=== PATIENT | female | born 1930 | race Caucasian/White ===

== ENCOUNTER 2016-12-09 10:07 | Inpatient (IN) | payer MEDICARE, BC ==
[~2016-12-09] VITALS: Ht 160 cm; Wt 65.5 kg
--- NOTE | ~2016-12-09 | XA203 ---
[facility] A Service of [facility] & [facility] RADIOLOGY TEXT RESULTS PATIENT: DEMARCO WALKER LOCATION: [facility] 323-01 : [birth year] UNIT #: [id number] AGE: [address]: Brandon Cabral MD SEX: F ORDER DR: [id number] [facility] [address] [facility]. [place], [place] [address] [id number] MR#: [id number] #: [id number] NAME: DEMARCO WALKER. : 1930 SEX: F STUDY DATE/TIME: 12/13/2016 10:52 UNIT: [address] ROOM: [facility] STUDY DESCRIPTION: XA Thoracentesis Attending Physician: Brandon Cabral M.D. Ordering Physician: Brandon Cabral M.D. Primary Care Physician: Keven Smith M.D. MEDICAL IMAGING REPORT This report is preliminary unless electronic signature is present EXAM Right-sided thoracentesis INDICATION Large right pleural effusion PROCEDURE The risks, benefits and alternatives to the procedure were explained to the patient and signed, informed consent was obtained. She was seated in the upright position. Preliminary ultrasound of the right hemithorax was performed which demonstrated a large right pleural effusion. This image was permanently saved. Overlying skin was marked. Patient was prepped and draped in the usual sterile fashion. Time-out was performed as per protocol. Skin and subcutaneous tissues were anesthetized with buffered lidocaine. Catheter was hooked to suction tubing. There was evacuation of 1.3 L of serous material. Catheter was then removed and manual pressure was applied until hemostasis was obtained. IMPRESSION Technically successful ultrasound guided right thoracentesis with evacuation of 1.3 L of serous material. Ultrasound was used during the procedure and permanent images were saved. Dictated by... Patsy Smith M.D. THIS IS AN ELECTRONICALLY VERIFIED REPORT Patsy Smith M.D. at 12/15/2016 4:17 PM HARDIK/radha TD: 12/15/2016 13:23 JOB #: [id number] [facility] A Service of [facility] & [facility] RADIOLOGY TEXT RESULTS PATIENT: DEMARCO WALKER LOCATION: [facility] 323-01 : [birth year] UNIT #: [id number] AGE: [address]: Brandon Cabral MD SEX: F ORDER DR: MEDICAL IMAGING REPORT Page 1 of 1 COPY
--- NOTE | ~2016-12-09 | CO ---
Unit #: [id number] #: [id number] Patient: DEMARCO WALKER [id number] [address] [address] [id number] I MR#: [id number] NAME: DEMARCO WALKER. ROOM: 323 Age: 86 Sex: F Admission Date: 12/09/2016 : 1930 Attending Physician: Brandon Cabral M.D. Primary Care Physician: Keven Smith M.D. Consultation Date: 12/10/2016 CONSULTATION REPORT PRIMARY CARE PHYSICIAN Keven Smith M.D. REASON FOR CONSULTATION 1. Upper abdominal pain. 2. Anemia. 3. Hemoccult-positive stools and occult gastrointestinal blood loss. HISTORY OF PRESENT ILLNESS Ms. Walker is a very frail 86-year-old white female. The patient has presented with history of right lower chest and upper abdominal pain in the right side for the past several weeks. She is on long-term anticoagulation, and has significant severe CHF. The patient upon admission was found to be anemic and also had Hemoccult-positive stools. She denies any history of overt GI bleed in the form of hematemesis, melena, or hematochezia. PAST MEDICAL HISTORY Significant for history of atrial fibrillation, on long-term anticoagulation, as well as history of pneumonia, hyperglycemia, Clostridium difficile colitis, hypertension, hyperlipidemia, diabetes, anxiety, rheumatoid arthritis, history of coronary artery disease status post angioplasties, history of pulmonary hypertension, peripheral arterial disease with lower extremity stent placements. PAST SURGICAL HISTORY Included placement of stents in the lower extremity arteries, history of dilatation and curettage, sinus surgery, back surgery, cholecystectomy, left knee surgery, appendectomy, and hysterectomy. MEDICATIONS At home included; Coumadin, Coreg, hydralazine, prednisone, Zoloft, Prilosec, potassium, glimepiride, Zestril. ALLERGIES She is allergic to oxycodone and sulfonamides. FAMILY HISTORY Noncontributory. SOCIAL HISTORY Lives at home with her . She says she is able to do most activities of daily living, but is quite frail. She does not smoke or drink alcohol. Unit #: [id number] #: [id number] Patient: DEMARCO WALKER REVIEW OF SYSTEMS Detailed review of organ systems reveals poor mobility and poor effort tolerance. There is no history of overt GI bleed in the form of hematemesis, melena, or hematochezia. No history of fever, chills, or rigors. No history of headache, seizures, chest pain, or syncope. No history of cough, expectoration, or hemoptysis. No history of dysuria, hematuria, or pyuria. No history of focal seizures or extremity weakness. PHYSICAL EXAMINATION GENERAL: She is awake, but somewhat lethargic. She is arousable. VITAL SIGNS: Stable with a temperature of 98.1, pulse is 49 per minute and regular, respiratory rate is 18, and blood pressure is 128/61. She weighs 156 pounds, which is close to her baseline weight. HEENT: She has mild pallor. No icterus, lymphadenopathy, or peripheral edema. She does have grade 1 pitting peripheral edema. CARDIOVASCULAR: Normal heart sounds. LUNGS: Auscultation of the lungs reveal bilateral diminished symmetric air entry. ABDOMEN: Soft, obese, nontender. Liver and spleen are not palpable. Bowel sounds normal. DIAGNOSTIC STUDIES LABORATORY RESULTS: Shows a BUN and creatinine of 32 and 1.4, blood glucose of 148. Her sodium and potassium are normal, and albumin is 3.0. INR was 1.1. Her hemoglobin is 10.1, baseline hemoglobin is [place] 12[place] [address] with left shift, and platelet count is 185. CLINICAL IMPRESSION Although, the patient has Hemoccult positive stools and anemia, she is quite frail, and any kind of invasive investigation or evaluation would be counterproductive. A diagnostic endoscopy is however warranted to be scheduled tomorrow to look for any evidence of GI source of blood loss. The pros and cons of procedure will be done later today. The pros and cons of procedure, potential risks, and complications were discussed with the patient, and she was reassured. Thank you for asking me to see this pleasant woman. I appreciate the consult. Dictated byAlejandra Kuo/rachel TD: 12/12/2016 20:24 JOB #: [id number] Unit #: [id number] #: [id number] Patient: DEMARCO WALKER CONSULTATION REPORT Page 1 of 1 X Junior Gruber MD CONSULTATION REPORT
--- NOTE | ~2016-12-09 | HP ---
Unit #: [id number] #: [id number] Patient: DEMARCO WALKER [id number] [address] [address] [id number] MR#: [id number] NAME: DEMARCO WALKER ROOM: Age: 86 Sex: F Admission Date: 12/09/2016 : 1930 Attending Physician: German Corrales M.D. Primary Care Physician: Keven Smith M.D. HISTORY AND PHYSICAL CHIEF COMPLAINT Abdominal pain. HISTORY OF PRESENT ILLNESS The patient is an 86-year-old female with past medical history of atrial fibrillation, sick sinus syndrome, chronic anticoagulation, hypertension, hyperlipidemia, diabetes, anxiety, rheumatoid arthritis, pulmonary hypertension, coronary artery disease, who presented to the emergency department for evaluation of the above. The patient states that she has not been feeling well for two to three days. She reports crampy abdominal pain that has been intermittent in nature. There are no exacerbating or alleviating factors. She states that she has had vomiting and diarrhea in association with the pain. She reports three to four black stools within the past 24 hours. She has had chills and undocumented fever. She denies any chest pain. No cough. No urinary symptoms. In the emergency department initial pulse and blood pressure were 82 and 121/71 respectively. Temperature is 98.6. Chest x-ray shows vascular congestion with possible infiltrate in the bases. She was given Rocephin and azithromycin in the emergency department as well as a 1 L normal saline bolus and 4 mg of Zofran. She is being admitted to [facility] for evaluation and further treatment. PAST MEDICAL HISTORY 1. Admission to [facility] April 09-2015 for hypoglycemia and pneumonia. 2. History of C. diff. 3. Atrial fibrillation, on chronic anticoagulation with Pradaxa. 4. Sick sinus syndrome. 5. Hypertension. 6. Hyperlipidemia. 7. Diabetes. 8. Anxiety. 9. Rheumatoid arthritis. 10. Coronary artery disease. The patient had a cardiac catheterization May 11, 2012 that showed 90% stenosis at the ostium of the first diagonal branch of the LAD, 40% to 50% stenosis in the proximal LAD, 50% stenosis at the ostium of the right coronary artery. The plan was medical therapy per the operative note. 11. Pulmonary hypertension. The patient had an echocardiogram October 13, 2013 that showed an ejection fraction of 45% to 50%. Right ventricular systolic pressure was elevated at greater than 60 mmHg. 12. Peripheral arterial disease, status post lower extremity stent Unit #: [id number] #: [id number] Patient: DEMARCO WALKER. PAST SURGICAL HISTORY 1. Cardiac catheterization May 11, 2012 with results as noted above. 2. Appendectomy. 3. Hysterectomy. 4. Left knee surgery. 5. Back surgery. 6. Cholecystectomy. 7. Cataract surgery. 8. Lower extremity stents. 9. D/C. 10. Sinus surgery. SOCIAL HISTORY The patient lives with her . There is no tobacco or alcohol use. Her code status is a Do Not Resuscitate. FAMILY HISTORY Noncontributory secondary to age. ALLERGIES Oxycodone, sulfa. HOME MEDICATIONS 1. Coreg 3.125 mg b.i.d. 2. Hydralazine 25 mg b.i.d. 3. Prednisone 5 mg daily. 4. Zoloft 50 mg daily. 5. Prilosec 20 mg daily. 6. Potassium 10 mEq b.i.d. 7. Glimepiride 2 mg q.h.s. 8. Zestril 40 mg daily. REVIEW OF SYSTEMS A complete review of systems is negative except as indicated in the HPI. The patient has been going to the wound care center at [facility] for the past year regarding leg wounds. DIAGNOSTIC STUDIES CARDIOVASCULAR: EKG shows atrial fibrillation with a rate of 73 beats per minute. IMAGING: Chest x-ray shows possible bibasilar infiltrates with small bilateral pleural effusions. CT of the abdomen and pelvis shows no acute intraabdominal pathology. LABORATORY: INR is 1.2. Troponin is less than 0.05. Comprehensive metabolic panel notable for a glucose of 130, BUN and creatinine 31 and 1.4 respectively, AST and ALT are 55 and 42 respectively, alkaline phosphatase is 93, albumin is 3.4. Complete blood count notable for white blood cell count of 15.9, hemoglobin and hematocrit 10.7 and 34.3 respectively, MCV was 70.4, RDW 21.2. PHYSICAL EXAMINATION VITAL SIGNS: Temperature is 98.6. Pulse 87. Respirations 16. Blood pressure 121/71. Oxygen saturation 93% on room air. Unit #: [id number] #: [id number] Patient: DEMARCO WALKER GENERAL: The patient is a female who is awake and alert, in no acute distress. HEENT: The head is atraumatic. Mucous membranes are moist. NECK: Neck is supple. Trachea is midline. CARDIOVASCULAR: Irregular. LUNGS: Lungs are relatively clear to auscultation bilaterally, with no increased work of breathing. ABDOMEN: Abdomen is soft, nontender, with bowel sounds present in all four quadrants. ANO-RECTAL: Rectal exam was heme positive per my discussion with the ER staff. EXTREMITIES: Nontender, with no pedal edema. The legs are wrapped with TEVIN bandages bilaterally. NEUROLOGIC: The patient is awake and alert. She is oriented x3. She follows commands. PSYCHIATRIC: Mood and affect are normal. The patient is cooperative. SKIN: Skin of examined areas is warm and dry. ASSESSMENT The patient is an 86-year-old female with: 1. Pneumonia, community acquired. The patient received Rocephin and azithromycin in the emergency department. 2. Abdominal pain with a negative CT of the abdomen and pelvis. 3. Nausea, vomiting and diarrhea. The patient has a history of Clostridium difficile. 4. Gastrointestinal bleed. 5. Microcytic anemia. The patient's hemoglobin was 12.6 on April 15, 2016. It is 10.7 today. 6. Acute kidney injury. The patient's creatinine was 0.8 on April 17, 2016. It is 1.4 today. I suspect this patient is somewhat volume depleted as she has not been eating and had vomiting and diarrhea. Additionally, she is on Zestril which could be contributing. 7. Transaminitis. 8. Atrial fibrillation, on chronic anticoagulation with Pradaxa although that is not listed on her med rec. The patient and her state that she is on Pradaxa. 9. History of sick sinus syndrome. 10. Hypertension. 11. Hyperlipidemia. 12. Diabetes. 13. Anxiety. 14. Rheumatoid arthritis. 15. Pulmonary hypertension with right ventricular systolic pressure as noted above. 16. Coronary artery disease. 17. History of leg wounds, followed by the wound care center at [facility]. PLAN 1. Admit to intermediate level. 2. Normal saline at 75 mL an hour. 3. Clear liquid diet for possible endoscopy. 4. Blood cultures x2. 5. Sputum culture and sensitivity. 6. Procalcitonin level. 7. Rocephin and azithromycin IV for community-acquired pneumonia pending further workup. Unit #: [id number] #: [id number] Patient: DEMARCO WALKER 8. DuoNebs q.4 h. p.r.n. 9. Mucinex 600 mg p.o. b.i.d. 10. Supplemental oxygen. 11. Iron studies, B12 and folate. 12. Protonix 80 mg IV x1 followed by Protonix drip at 8 mg per hour. 13. Hemoglobin and hematocrit q.6 h. Will plan to transfuse for hemoglobin less than eight due to history of coronary artery disease. 14. Consult Dr. Gruber regarding GI bleed. 15. Hold Pradaxa if patient is, in fact, taking Pradaxa. 16. Stool studies for ova and parasite, C. diff., culture and sensitivity. 17. Serial cardiac enzymes. 18. Hemoglobin A1C. 19. Low dose sliding scale insulin with Accu-Cheks. 20. Check urinalysis. 21. Repeat labs in the morning. 22. Wound care consult regarding leg wounds. 23. Regarding code status, the patient is a Do Not Resuscitate. Dictated by Alejandra Cool/sonia TD: 12/09/2016 15:14 JOB #: [id number] HISTORY AND PHYSICAL Page 1 of 1 X Nury Hickey MD X HISTORY AND PHYSICAL
--- NOTE | ~2016-12-09 | CR72 ---
[facility] A Service of [facility] RADIOLOGY TEXT RESULTS PATIENT: DEMARCO WALKER LOCATION: [place] [address] : [birth year] UNIT #: [id number] AGE: [address]: Nury Hickey MD SEX: F ORDER DR: [id number] [facility] [address] [facility] [place], [place] [address] [id number] E MR#: [id number] Acc #: [id number] NAME: DEMARCO WALKER : 1930 SEX: F STUDY DATE/TIME: 12/09/2016 11:08 UNIT: [facility] ROOM: STUDY DESCRIPTION: CR Chest Single View Portable Attending Physician: German Corrales M.D. Ordering Physician: German Corrales M.D. Primary Care Physician: Keven Smith M.D. MEDICAL IMAGING REPORT This report is preliminary unless electronic signature is present EXAM Portable chest 12/09/2016 INDICATIONS Shortness of air for 3 days with nausea, vomiting, and diarrhea. COMPARISON AP portable chest compared with 04/13/2016. FINDINGS Heart is enlarged. There is vascular congestion with probable pulmonary edema. Pneumonia should be excluded in the lung bases. There are small bilateral pleural effusions. No pneumothorax. Dictated by... Juan David Armstrong Jr., M.D. THIS IS AN ELECTRONICALLY VERIFIED REPORT Juan David Armstrong Jr., M.D. at 12/09/2016 4:50 PM YANI/kim TD: 12/09/2016 13:21 JOB #: [id number] MEDICAL IMAGING REPORT Page 1 of 1 COPY
--- NOTE | ~2016-12-09 | EKG ---
PATIENT: DEMARCO WALKER UNIT #: [id number] Ventricular Rate: 73 BPM Atrial Rate: 77 BPM QRS Duration: 104 ms Q-T Interval: 404 ms QTC Calculation(Bezet): 445 ms Calculated R [place]: -64 degrees Calculated T [place]: 101 degrees Diagnosis Line: Atrial fibrillation with a competing junctional Diagnosis Line: pacemaker Diagnosis Line: Left axis deviation Diagnosis Line: Inferior infarct , age undetermined Diagnosis Line: poor r wave progression in anterior leads related Diagnosis Line: to left anterior fascicular block Diagnosis Line: Abnormal ECG Diagnosis Line: When compared with ECG of 09-APR-2016 17:49, Diagnosis Line: No significant change was found Diagnosis Line: Confirmed by ALIX HUTCHINSON, LENNY ([id number]) on 12/11/2016 Diagnosis Line: 8:17:30 AM INTERPRETING MD: ALIX HUTCHINSON
--- NOTE | ~2016-12-09 | CO ---
Unit #: [id number] #: [id number] Patient: DEMARCO WALKER [id number] [address] [address] [id number] I MR#: [id number] NAME: DEMARCO WALKER. ROOM: 323 Age: 86 Sex: F Admission Date: 12/09/2016 : 1930 Attending Physician: Brandon Cabral M.D. Primary Care Physician: Keven Smith M.D. Consultation Date: 12/11/2016 CONSULTATION REPORT REASON FOR CONSULT Evaluation of pleural effusion. HISTORY OF PRESENT ILLNESS This is a very pleasant 86-year-old female with a past medical history significant for atrial fibrillation, sick sinus syndrome, hypertension, hyperlipidemia, rheumatoid arthritis and pulmonary hypertension who presented to the emergency room with nausea and abdominal pain. Patient admitted to two to three episodes of vomiting and she had some loose stool. She stated that her vomitus was black material. She denied any fever but she had some chills. PAST MEDICAL HISTORY 1. Recurrent C. diff. 2. Atrial fibrillation. 3. Sick sinus syndrome. 4. Hypertension. 5. Hyperlipidemia. 6. Diabetes. 7. Anxiety. 8. Rheumatoid arthritis. 9. Coronary artery disease. 10. Pulmonary hypertension. 11. Peripheral vascular disease. PAST SURGICAL HISTORY 1. Multiple cardiac caths. 2. Appendectomy. 3. Hysterectomy. 4. Left knee surgery. 5. Back surgery. 6. Cholecystectomy. 7. Cataract surgery. 8. Lower extremity stent. 9. Sinus surgery. SOCIAL HISTORY The patient lives with her . No history of alcohol or drug abuse. Her code status is DON'T RESUSCITATE. FAMILY HISTORY Noncontributory to her age. Unit #: [id number] #: [id number] Patient: DEMARCO WALKER ALLERGIES Oxycodone, sulfa. HOME MEDICATIONS 1. Coreg. 2. Hydralazine. 3. Prednisone. 4. Zoloft. 5. Prilosec. 6. Potassium. 7. Glimepiride. 8. Zestril. REVIEW OF SYSTEMS Twelve point review of systems were obtained and were negative except for what was mentioned in the HPI. DIAGNOSTIC STUDIES LABORATORY: Creatinine 1.4, sodium 136, calcium 8.3, BNP 600, troponin 0.1, white blood count 10.0, hemoglobin 9.8, platelets 148. IMAGING: CT chest is consistent with bilateral pleural effusion. ASSESSMENT 1. Acute hypoxic respiratory failure. 2. Community-acquired pneumonia. 3. Bilateral pleural effusion. 4. Pulmonary hypertension. 5. Coronary artery disease. 6. Peripheral vascular disease. 7. Chronic kidney disease. 8. Chronic anemia. PLAN 1. Will try to wean patient's oxygen down to room air, which is her baseline, as tolerated. 2. Will continue current antibiotics and we will follow culture. 3. Will plan for thoracentesis within the next one to two days. 4. Bronchodilator and mucolytics. 5. Physical therapy. 6. Out of bed to chair and ambulation. 7. DVT prophylaxis. I would like to thank Dr. Cabral for allowing me to be part of this patient's care. Dictated by... Alejandra George TD: 12/12/2016 08:39 JOB #: [id number] Unit #: [id number] #: [id number] Patient: DEMARCO WALKER CONSULTATION REPORT Page 1 of 1 X AMY MEJÍA MD X CONSULTATION REPORT
--- NOTE | ~2016-12-09 | DS ---
Unit #: [id number] #: [id number] Patient: DEMARCO WALKER [id number] [address] [place], [place] [address] [id number] I MR#: [id number] NAME: DEMARCO WALKER. ROOM: 323 Age: 86 Sex: F Admission Date: 12/09/2016 : 1930 Discharge Date: 12/14/2016 Attending Physician: Brandon Cabral M.D. Primary Care Physician: Keven Smith M.D. DISCHARGE SUMMARY TENTATIVE REPORT (medication dosing issue faxed to Dr. Cabral for completion 12/14 ) REASON FOR ADMISSION Abdominal pain. HISTORY OF PRESENT ILLNESS/HOSPITAL COURSE The patient is a very pleasant 86-year-old female with an ongoing history of atrial fibrillation and sick sinus syndrome, on chronic anticoagulation, hypertension, hyperlipidemia, diabetes, rheumatoid arthritis, pulmonary hypertension, and coronary artery disease, as well as mild to moderate dementia and very hard of hearing, who presented secondary to abdominal pain. Chest x-ray initially performed in the emergency room showed vascular congestion and possible infiltrates. She was admitted secondary to above. Through her hospital course and secondary to patient's history of abdominal pain, we placed a consultation to Dr. Gruber of gastroenterology services. Ultimately, patient underwent upper GI endoscopy which did not show any acute findings. Dr. Gruber stated at that point in time that patient was stable from his standpoint. He did note there was a stricture in the distal esophagus which he dilated. However, there was no acute etiology for bleeding and/or aspiration. Otherwise, it remained stable. Patient's abdominal pain shortly thereafter resolved. While we were preparing patient for possible discharge, it was noted that she was significant fluid overloaded; therefore, we placed a consultation to Dr. Smalls and associates from Cardiology. Her medications were adjusted, and she was placed on IV diuresis. She did undergo a 2D echocardiogram which showed an ejection fraction of 45% to 50%, as well as right ventricular volume overload and elevated RV end-diastolic pressures. There was moderate to severe tricuspid regurgitation and moderate mitral regurgitation, as well as moderate aortic regurgitation which was noted. At this point in time, cardiology services has cleared patient. Through workup, patient also had undergone a CT chest which raised the possibility of infiltrate versus bilateral pleural effusions, right greater than left. This prompted consultation to Dr. Elliott and associates for evaluation. The patient ultimately underwent right-sided thoracentesis which was more transudative in nature consistent with fluid overload/heart failure exacerbation. Patient's blood cultures also came back positive for E. coli ESBL Unit #: [id number] #: [id number] Patient: DEMARCO WALKER bacteremia, as well as her urine culture was positive for ESBL. This subsequently prompted consultation to infectious disease services who recommended IV Merrem 500 mg IV q.6 until December 25, 2016. It is also noted that patient does have chronic bilateral lower extremity edema/wounds. This prompted a Wound Care consult, and they continued to follow patient through course while she was here. Final wound culture was consistent with pseudomonas. At this point in time, patient is now stable for discharge. Secondary to advanced age and associated comorbid conditions, as well as her being of advanced age and having his own chronic medical conditions, and need for patient to have IV antibiotics, the decision has been made for patient to be transitioned to a short-term rehab facility. FINAL DISCHARGE DIAGNOSES 1. Extended-spectrum beta-lactamase bacteremia. 2. Extended-spectrum beta-lactamase urinary tract infection. 3. Pseudomonas on chronic bilateral lower extremity wounds. 4. Right-sided pleural effusion, transudative, status post thoracentesis. 5. Acute on chronic systolic/diastolic heart failure. 6. Valvular heart disease. 7. Hard of hearing. 8. Dementia. 9. Cardiac arrhythmias and atrial fibrillation/sick sinus syndrome. 10. Chronic anticoagulation. 11. Volume overload, now improved. 12. Advanced age. 13. Chronic deconditioning. 14. Chronic immobility syndrome. 15. Hypertension. 16. Nonsustained ventricular tachycardia. 17. Anemia. DIAGNOSTIC STUDIES LABORATORY: Baseline laboratory studies at time of discharge include the following: Hemoglobin 9.4 and MCV 70. BMP shows a creatinine 0.9 and GFR 57. FINAL DISCHARGE MEDICATIONS 1. DuoNeb aerosol solution q.6 hours scheduled. 2. Prednisone 5 mg p.o. daily. 3. Tylenol 650 mg p.o. q.6 p.r.n. 4. Zoloft 50 mg p.o. daily. 5. Senokot-S 1 tablet p.o. b.i.d. 6. Lasix 20 mg p.o. b.i.d. 7. Lipitor 10 mg p.o. at bedtime. 8. Hydralazine 25 mg p.o. b.i.d. 9. Lisinopril 20 mg p.o. daily. 10. NovoLog low-dose insulin sliding scale with Accu-Cheks q.a.c. and at bedtime. 11. Aldactone 12.5 mg p.o. daily. 12. Protonix 40 mg p.o. q.a.m. 13. Klor-Con 10 mEq p.o. b.i.d. 14. Amaryl 2 mg p.o. "q.h.s. with breakfast (?)" 15. Merrem 500 mg IV q.6 until December 25, 2016. DISCHARGE CONDITION Unit #: [id number] #: [id number] Patient: DEMARCO WALKER Stable. DISCHARGE DISPOSITION Rehab for ongoing care. Dictated by... Alejandra Palmer/tremaine TD: 12/14/2016 15:34 JOB #: [id number] DISCHARGE SUMMARY Page 1 of 1 X Brandon Cabral MD X DISCHARGE SUMMARY
--- NOTE | ~2016-12-09 | CT4 ---
[facility] A Service of [facility] RADIOLOGY TEXT RESULTS PATIENT: DEMARCO WALKER LOCATION: C3A 323-01 : [birth year] UNIT #: [id number] AGE: [address]: Brandon Cabral MD SEX: F ORDER DR: [id number] [facility] [address] [facility]. [place], [place] [address] [id number] I MR#: [id number] Acc #: [id number] NAME: DEMARCO WALKER. : 1930 SEX: F STUDY DATE/TIME: 12/09/2016 13:05 UNIT: CEDOF ROOM: [id number] STUDY DESCRIPTION: CT Abd and Pelv Wo Cont Attending Physician: Nury Hickey M.D. Ordering Physician: Savanna Hudson Primary Care Physician: Keven Smith M.D. MEDICAL IMAGING REPORT This report is preliminary unless electronic signature is present EXAM CT abdomen and pelvis without contrast INDICATIONS Nausea vomiting diarrhea for the past 3 days with bloody stools. PROCEDURE Unenhanced CT of the abdomen and pelvis. This CT exam was performed with one or more of the following radiation dose reduction techniques: automatic control, adjustment of mA and/or kV according to patient size, and iterative reconstruction. COMPARISON 05/15/2015 FINDINGS ABDOMEN WITHOUT CONTRAST: Large bilateral pleural effusions stable on the right and increased on the left. Cardiomegaly. Liver enlarged measuring 20.2 cm. The spleen kidneys adrenal glands pancreas are unremarkable. Gallbladder is not clearly seen and may be surgically absent or contracted. Bowel loops are nondilated. Uncomplicated sigmoid diverticula. PELVIS WITHOUT CONTRAST: There is a small to moderate amount of fluid in the pelvis. No pelvic mass. No aggressive appearing bone lesion. IMPRESSION 1. Large bilateral pleural effusions stable on the right, increased on the left, since 05/15/2015. 2. Hepatomegaly. 3. No acute findings [facility] A Service of [facility] RADIOLOGY TEXT RESULTS PATIENT: DEMARCO WALKER LOCATION: [facility] 323-01 : [birth year] UNIT #: [id number] AGE: [address]: Brandon Cabral MD SEX: F ORDER DR: Dictated by... Juan Salinas M.D. THIS IS AN ELECTRONICALLY VERIFIED REPORT Juan Salinas M.D. at 12/13/2016 8:20 AM EERosaura/parker TD: 12/09/2016 15:24 JOB #: [id number] MEDICAL IMAGING REPORT Page 1 of 1 COPY
--- NOTE | ~2016-12-09 | XA166 ---
[facility] A Service of [facility] RADIOLOGY TEXT RESULTS PATIENT: DEMARCO WALKER LOCATION: [facility] 323- : [birth year] UNIT #: [id number] AGE: [address]: Brandon Cabral MD SEX: F ORDER DR: [id number] [facility] [address] [facility]. [place], [place] [address] [id number] I MR#: [id number] Acc #: [id number] NAME: DEMARCO WALKER. : 1930 SEX: F STUDY DATE/TIME: 12/13/2016 10:52 UNIT: C3A U ROOM: [facility] STUDY DESCRIPTION: XA PICC Line Placement WO Port Attending Physician: Brandon Cabral M.D. Ordering Physician: Shine Mullen M.D. Primary Care Physician: Keven Smith M.D. MEDICAL IMAGING REPORT This report is preliminary unless electronic signature is present EXAM Right-sided PICC line placement. INDICATIONS Need for IV access in a patient with cardiomegaly and vascular congestion as well as bilateral pulmonary infiltrates. PRE-PROCEDURE The procedure was explained to the patient and/or patient territory service representative including risks, benefits, potential complications and potential for alternative forms of treatment. Informed consent was obtained, and prior to initiating the procedure a formal timeout procedure was performed. PROCEDURE Using full standard sterile barrier technique, including caps, gowns, gloves, masks, as well as sterile skin preparation and standard sterile draping, the right arm was prepped and draped in the usual fashion, and real-time sterile ultrasound guidance was used to localize an arm vein and to confirm vessel patency. A hard copy ultrasound image was recorded. After local anesthesia with 1% Xylocaine, the vein was punctured using real-time sterile ultrasound guidance, and an 0.018 guidewire was advanced into the superior vena cava, using fluoroscopic guidance. A 4 Nepali single-lumen PICC was then measured and deployed with the tip positioned in the superior vena cava. The position of the line was documented with a radiographic image. The line was secured in place with an adhesive dressing and an antibiotic patch was applied. Total fluoro time was 0.1 minutes. AK is 1 mGy. IMPRESSION Successful placement of a 4 Nepali single lumen PowerPICC via the right arm under ultrasound and fluoroscopic guidance. The tip of the PICC is in good position in the superior vena cava. [facility] A Service of [facility] RADIOLOGY TEXT RESULTS PATIENT: DEMARCO WALKER LOCATION: A 323- : [birth year] UNIT #: [id number] AGE: [address]: Brandon Cabral MD SEX: F ORDER DR: Dictated by... Patsy Smith M.D. THIS IS AN ELECTRONICALLY VERIFIED REPORT Patsy Smith M.D. at 12/15/2016 4:18 PM AFF/pc TD: 12/15/2016 13:18 JOB #: [id number] MEDICAL IMAGING REPORT Page 1 of 1 COPY
--- NOTE | ~2016-12-09 | CR71 ---
[facility] A Service of [facility] RADIOLOGY TEXT RESULTS PATIENT: DEMARCO WALKER LOCATION: [facility] 323-01 : [birth year] UNIT #: [id number] AGE: [address]: Brandon Cabral MD SEX: F ORDER DR: [id number] [facility] [address] [place], [place] [address] [id number] I MR#: [id number] Acc #: [id number] NAME: DEMARCO WALKER : 1930 SEX: F STUDY DATE/TIME: 12/13/2016 11:20 UNIT: [address] ROOM: [facility] STUDY DESCRIPTION: CR Chest Single View Attending Physician: Brandon Cabral M.D. Ordering Physician: Patsy Smith M.D. Primary Care Physician: Keven Smith M.D. MEDICAL IMAGING REPORT This report is preliminary unless electronic signature is present EXAM Chest single view post thoracentesis. TECHNIQUE AP radiograph of the chest is presented. COMPARISON Comparison 12/09/2016 11:08 hours. FINDINGS Stable cardiac enlargement. Patient appears to be status post right thoracentesis with small residual right pleural effusion. No pneumothorax. Small left pleural effusion. Significantly decreased, but not yet completely resolved vascular congestion. Significantly decreased interstitial prominence bilaterally. Decreased airspace disease right lwf-ns-vqecu lung zone with some areas of residual atelectasis. Patchy and linear/band-like densities left tgl-et-urruy lung zone persist, likely combination of residual airspace edema and atelectasis. No acute bony abnormality. Dictated by... Tony Rodriguez M.D. THIS IS AN ELECTRONICALLY VERIFIED REPORT Tony Rodriguez M.D. at 12/14/2016 10:44 PM TEA/eladio TD: 12/13/2016 16:53 JOB #: [id number] MEDICAL IMAGING REPORT Page 1 of 1 COPY
--- NOTE | ~2016-12-09 | CT57 ---
[facility] A Service of [facility] RADIOLOGY TEXT RESULTS PATIENT: DEMARCO WALKER LOCATION: [facility] 323-01 : [birth year] UNIT #: [id number] AGE: [address]: Brandon Cabral MD SEX: F ORDER DR: [id number] [facility] [address] [facility]. [place], [place] [address] [id number] I MR#: [id number] Acc #: [id number] NAME: DEMARCO WALKER : 1930 SEX: F STUDY DATE/TIME: 12/10/2016 14:29 UNIT: [address] ROOM: [facility] STUDY DESCRIPTION: CT Chest Wo Cont Attending Physician: Brandon Cabral M.D. Ordering Physician: Brandon Cabral M.D. Primary Care Physician: Keven Smith M.D. MEDICAL IMAGING REPORT This report is preliminary unless electronic signature is present EXAM CT chest without contrast HISTORY Bilateral pleural effusions on recent CT abdomen yesterday. Shortness of air. Bacteremia. Pulmonary infiltrate on recent chest x-ray. TECHNIQUE This CT exam was performed with one or more of the following radiation dose reduction techniques: automatic exposure control, adjustment of mA and/or kV according to patient size, and iterative reconstruction. FINDINGS CT chest without contrast demonstrates moderate-sized bilateral pleural effusions, right greater than left. Mild atelectasis in the posterior right lower lobe and moderately extensive atelectasis in the inferior left lower lobe. There may be superimposed infiltrate in the left lower lobe inferiorly. Mild atelectasis in the right middle lobe and posterior lingula. Multiple calcified mediastinal and right hilar nodes. No adenopathy. IMPRESSION 1. Moderate-sized bilateral pleural effusions, right greater than left. 2. Moderately extensive atelectasis and probable superimposed infiltrate in the inferior left lower lobe and ratx-ap-sqfmqujb atelectasis in the posterior right lower lobe. There is additional subsegmental atelectasis in the right middle lobe and in the lingula. 3. No adenopathy. 4. Extensive calcified mediastinal and right hilar nodes. Dictated by... [facility] A Service of [facility] RADIOLOGY TEXT RESULTS PATIENT: DEMARCO WALKER LOCATION: [place] [address]- : [birth year] UNIT #: [id number] AGE: [address]: Brandon Cabral MD SEX: F ORDER DR: Onel Melgoza M.D. THIS IS AN ELECTRONICALLY VERIFIED REPORT Onel Melgoza M.D. at 12/10/2016 10:12 PM DFL/pcl TD: 12/10/2016 20:50 JOB #: [id number] MEDICAL IMAGING REPORT Page 1 of 1 COPY
--- NOTE | ~2016-12-09 | EKG ---
PATIENT: DEMARCO WALKER UNIT #: [id number] Ventricular Rate: 63 BPM Atrial Rate: 416 BPM QRS Duration: 108 ms Q-T Interval: 414 ms QTC Calculation(Bezet): 423 ms Calculated R [place]: -80 degrees Calculated T [place]: 93 degrees Diagnosis Line: Atrial fibrillation Diagnosis Line: Left axis deviation Diagnosis Line: Inferior infarct (cited on or before 09-DEC-2016) Diagnosis Line: Abnormal ECG Diagnosis Line: When compared with ECG of 09-DEC-2016 11:02, Diagnosis Line: No significant change was found Diagnosis Line: Confirmed by LENNY THOMSON MD ([id number]) on 12/14/2016 Diagnosis Line: 6:56:06 AM INTERPRETING MD: ALIX HUTCHINSON
--- NOTE | ~2016-12-09 | CR72 ---
[facility] A Service of [facility] & [facility] RADIOLOGY TEXT RESULTS PATIENT: DEMARCO WALKER LOCATION: [facility] 323- : [birth year] UNIT #: [id number] AGE: [address]: Brandon Cabral MD SEX: F ORDER DR: [id number] [facility] [address] [place], [place] [address] [id number] I MR#: [id number] Acc #: [id number] NAME: DEMARCO WALKER. : 1930 SEX: F STUDY DATE/TIME: 12/13/2016 20:48 [facility] STUDY DESCRIPTION: CR Chest Single View Portable Attending Physician: Brandon Cabral M.D. Ordering Physician: Mulu Abdalla M.D. Primary Care Physician: Keven Smith M.D. MEDICAL IMAGING REPORT This report is preliminary unless electronic signature is present EXAM Frontal chest 12/13/2016 INDICATION 86-year-old female with right-sided chest pain that began today. Clinical concern for pneumothorax. Hypertension. TECHNIQUE Frontal chest compared with 1120 hours. FINDINGS Right-sided PICC line is new compared to the prior study and terminates at the hyvmbpgn-kv-fnv SVC level. There is no pneumothorax. Cardiac silhouette enlarged. Vascular congestion and interstitial edema present with a small right effusion and moderate left-sided effusion. Worsening of edema, infiltrate or atelectasis in the midlung zone on the right. IMPRESSION 1. Cardiomegaly with vascular congestion and interstitial edema with bilateral effusions, left greater than right. 2. More confluent edema, infiltrate or atelectasis in the midlung zone on the right. 3. Right-sided PICC line present. No pneumothorax. Dictated by... Shiv Maria M.D. THIS IS AN ELECTRONICALLY VERIFIED REPORT Shiv Maria M.D. at 12/14/2016 2:21 PM ANGELITA/edmundo TD: 12/14/2016 10:53 JOB #: [id number] [facility] A Service of [facility] & [facility] RADIOLOGY TEXT RESULTS PATIENT: DEMARCO WALKER LOCATION: [facility] 323-01 : [birth year] UNIT #: [id number] AGE: [address]: Brandon Cabral MD SEX: F ORDER DR: MEDICAL IMAGING REPORT Page 1 of 1 COPY
--- NOTE | ~2016-12-09 | OR ---
Unit #: [id number] #: [id number] Patient: DEMARCO WALKER [id number] [address] [address] [id number] I MR#: [id number] NAME: DEMARCO WALKER. ROOM: 323 Date of Procedure: 12/10/2016 Admission Date: 12/09/2016 Surgeon: Junior Gruber M.D. : 1930 Attending Physician: Brandon Cabral M.D. Primary Care Physician: Keven Smith M.D. OPERATIVE REPORT PRIMARY CARE PHYSICIAN Keven Smith M.D. PREOPERATIVE DIAGNOSES Anemia and Hemoccult-positive stools as well as upper abdominal pain. PROCEDURES PERFORMED 1. Upper gastrointestinal endoscopy and biopsy. 2. Upper gastrointestinal endoscopy and dilation with a 15 to 18 TTS balloon. POSTOPERATIVE DIAGNOSES 1. The patient had a distal esophageal benign stricture. This was clearly obstructing and was dilated using a 15 to 18 mm TTS balloon. 2. Moderate prepyloric antral erosive gastritis. A biopsy was obtained from the antrum for CLOtest. 3. Rest of the examination up to third part of the duodenum was normal. RECOMMENDATIONS The patient will be started on healthy heart CCD diet as tolerated and we will repeat CBC and CMP in the morning. It is noteworthy she is too frail to withstand or undergo colonoscopy, therefore avoid any further evaluation. SEDATION USED MAC. DESCRIPTION OF PROCEDURE Following detailed explanation of the potential risks and complications of an upper endoscopy, namely perforation, bleeding, complication related to sedation, the patient was brought to GI lab and laid in the left lateral decubitus position. Lubricated tip of the Olympus video upper endoscope was passed through the bite block into the proximal esophagus under direct vision. The entire esophageal mucosa was examined, and the patient was noted to have distal esophageal benign stricture. The latter was dilated using a 15 to 18 mm TTS balloon. Excellent dilation was achieve after fracturing the stricture. The scope was then advanced into the gastric cavity and the latter was insufflated. Mucosa of the fundus, body, and antrum examined. Mild to moderate prepyloric antral erythema erosions noted indicating antral gastritis. The changes were fairly diffuse. Pylorus was intubated with visualization of normal duodenal bulb and second and third part of the duodenum. Upon withdrawal and retroflexion, Unit #: [id number] #: [id number] Patient: DEMARCO WALKER incisura, cardia, and greater curve were examined and biopsy obtained from the antrum for CLOtest. The scope was then withdrawn into the distal esophagus. Entire esophageal mucosa was examined all the way up to pharynx. No additional findings noted. The patient tolerated the procedure without any postprocedure complications. Dictated by... Alejandra Bernardo/rachel TD: 12/12/2016 13:08 JOB #: [id number] CC: Alejandra Cool M.D. OPERATIVE REPORT Page 1 of 1 X Junior Gruber MD X PROCEDURE OPERATIVE NOTE
--- NOTE | ~2016-12-09 | CO ---
Unit #: [id number] #: [id number] Patient: DEMARCO WALKER [id number] [facility]. [place], [place] [address] [id number] I MR#: [id number] NAME: DEMARCO WALKER. ROOM: 323 Age: 86 Sex: F Admission Date: 12/09/2016 : 1930 Attending Physician: Brandon Cabral M.D. Primary Care Physician: Keven Smith M.D. CONSULTATION REPORT REASON FOR CONSULTATION Anticoagulation management. HISTORY OF PRESENT ILLNESS This is an 86-year-old white female who is known to Dr. Richter and has a history of coronary artery disease where she was found to have 90% stenosis in first diagonal branch of LAD per cardiac catheterization in 2012. The right coronary artery and LAD itself had nonobstructive disease. She was continued on medical therapy. She has hypertension, hyperlipidemia, and sick sinus syndrome where she refused permanent pacemaker in the past. She has paroxysmal atrial fibrillation and has been on anticoagulation with Pradaxa. The patient is a poor historian but says she has come to the emergency room because of shortness of breath and back and flank pain. She also reports abdominal discomfort. She noted black stools for the past few weeks. She denies nausea but had some episodes of vomiting. From a cardiac standpoint, she denies any symptoms of angina. She reports palpitations. Has persistent leg edema for which she gets her legs wrapped. Troponin has been initially negative but has peaked at 0.12. Her electrocardiogram shows no acute ischemic changes. On review of rhythm strips, she had an 18-beat run of monomorphic ventricular tachycardia. The patient was admitted with questionable pneumonia. Hemoglobin is stable at 10.1. She is scheduled for an EGD today. CT of the abdomen and pelvis shows large right pleural effusions. She is noted to have elevation of her LFTs. PAST MEDICAL HISTORY 1. Cardiac catheterization, May 11, 2012, shows proximal LAD with 50% stenosis, 90% of the first diagonal branch. Left main and circumflex arteries are normal. Right coronary artery dominant vessel with 50% to 60% stenosis. PLV and PDA branches normal. Ejection fraction of 55% to 60%. Noted for asymmetrical septal hypertrophy. 2. A 2D echocardiogram, October 14, 2013, shows an ejection fraction equal to 45% to 50% with wuxyatre-pl-kiuwuq mitral regurgitation, zhpz-av-bifhvymn tricuspid regurgitation, and mild aortic regurgitation. Aortic valvular leaflets (1) without stenosis. Right ventricular systolic pressure greater than 60 mmHg. 3. Hypertension. 4. Hyperlipidemia. 5. Paroxysmal atrial fibrillation, probable permanent on anticoagulation with Pradaxa. Unit #: [id number] #: [id number] Patient: DEMARCO WALKER 6. Diabetes mellitus type 2. 7. Sick sinus syndrome, refused permanent pacemaker in the past. 8. Anxiety. 9. Rheumatoid arthritis. 10. Bilateral pleural effusions with history of thoracentesis, April 2016. 11. Lifelong nonsmoker. PAST SURGICAL HISTORY 1. Appendectomy. 2. Hysterectomy. 3. Back surgery. 4. Cholecystectomy. 5. Left knee surgery. 6. Sinus surgery. 7. Cataract extraction. 8. Lower extremity stents placed in the past. SOCIAL HISTORY The patient is and lives with her . She uses a cane for ambulation. She has no history of illicit drug or alcohol use. FAMILY HISTORY Negative for coronary artery disease. ALLERGIES Aspirin, oxycodone, and sulfa. HOME MEDICATIONS 1. Protonix 20 mg daily. 2. Potassium chloride 10 mEq twice a day. 3. Glimepiride 2 mg nightly. 4. Lisinopril 40 mg daily. 5. Carvedilol 3.125 mg b.i.d. 6. Hydralazine 25 mg b.i.d. 7. Prednisone 5 mg daily. 8. Zoloft 50 mg daily. REVIEW OF SYSTEMS CONSTITUTIONAL: Complains of weakness and fatigue. Unsure of weight gain or weight loss. Reported recent subjective fever. HEENT: No headache, hearing or visual changes, difficulty with swallowing. Reports dizziness. CARDIOVASCULAR: Has no symptoms of angina. Positive for palpitations. Denies paroxysmal nocturnal dyspnea, orthopnea. No syncope or near syncope. RESPIRATORY: Positive for dyspnea. Has an occasional cough. No hemoptysis. GASTROINTESTINAL: Has abdominal discomfort and recent vomiting. Denies nausea. Reports melenic stools. EXTREMITIES: Has persistent lower extremity edema. PHYSICAL EXAMINATION VITAL SIGNS: Blood pressure 128/71, heart rate 64, temperature 98.3. BMI 22. GENERAL: This is an 86-year-old thin, frail female who is in no acute respiratory distress. NEUROLOGIC: She is awake, alert, and oriented. There are no focal Unit #: [id number] #: [id number] Patient: DEMARCO WALKER weakness. NECK: Trachea is midline. No thyromegaly or lymphadenopathy. No jugular venous distention. HEART: S1, S2 heart sounds are normal. No murmurs. No rubs or clicks. Irregularly irregular rhythm. LUNGS: Diminished breath sounds with fine crackles both lung bases. ABDOMEN: Soft, nontender with bowel sounds present. EXTREMITIES: With 1+ leg edema. SKIN: Warm and dry. DIAGNOSTIC STUDIES LABORATORY: Hemoglobin 10.1, hematocrit 33.6, platelet count 158,000, white count 13. Sodium 140, potassium 3.7, BUN 32, creatinine 1.4, glucose 77. Troponin 0.10 to 0.12. AST 52, ALT 49. IMAGING: Chest x-ray: Noted for vascular congestion. CARDIOVASCULAR: Electrocardiogram: Atrial fibrillation in a controlled ventricular rate 73 beats per minute with left axis deviation and poor R-wave progression. IMPRESSION 1. Questionable pneumonia. 2. Acute congestive heart failure. 3. Permanent atrial fibrillation and a controlled ventricular rate. 4. Nonsustained ventricular tachycardia at 150 beats per minute, monomorphic. 5. Large right pleural effusion. 6. Hypertension. 7. Hyperlipidemia. 8. Diabetes mellitus type 2. 9. Sick sinus syndrome. 10. Urinary tract infection. 11. Heme-positive stools. 12. Anemia. PLAN 1. Cardiology was consulted for anticoagulation management. The patient has known atrial fibrillation. She has a CHADS 2 VASc score of greater than 4 and needs long-term anticoagulation. Pradaxa has currently been held. 2. The patient is scheduled for EGD today. 3. Will diuresis the patient with IV diuretics for her heart failure. 4. Obtain 2D echocardiogram to evaluate left ventricular systolic function. 5. Will start on increased dose of beta olu for rhythm control. 6. Will add amiodarone and taper in doses for ventricular tachycardia. 7. Add Aldactone to diuresis. 8. If ventricular arrhythmias continue, the patient may need a repeat cardiac catheterization. 9. Will follow the patient with you. Thank you for allowing us to assist with this patient's care. Unit #: [id number] #: [id number] Patient: DEMARCO WALKER byAxel.. Red Sinha A.P.R.N. for Alejandra Lambert TD: 12/14/2016 10:08 JOB #: [id number] CONSULTATION REPORT Page 1 of 1 X Red Sinha APRN X CONSULTATION REPORT
--- NOTE | ~2016-12-09 | CO ---
Unit #: [id number] #: [id number] Patient: DEMARCO WALKER [id number] [place], [place] [address] [id number] I MR#: [id number] NAME: DEMARCO WALKER. ROOM: 323 Age: 86 Sex: F Admission Date: 12/09/2016 : 1930 Attending Physician: Brandon Cabral M.D. Primary Care Physician: Keven Smith M.D. Consultation Date: 12/11/2016 CONSULTATION REPORT REQUESTING PHYSICIAN Dr. Cabral. REASON FOR CONSULTATION Gram-negative sepsis. HISTORY OF PRESENT ILLNESS This is an 86-year-old, white female, who is an extremely poor historian. She is lethargic at the present time and unable to provide any information. Most of the information was obtained through review of the chart and discussion with the nursing staff. She was hospitalized two days ago with what appears to be some abdominal discomfort and had undergone EGD with dilatation of the esophageal stricture. She also had possible pneumonia and pleural effusion. She is scheduled to have thoracentesis on Tuesday. She is currently on ceftriaxone and Zithromax, and ID was consulted for positive blood culture for gram-negative rods. ID is still pending. The patient does not have any significant fever or hypotension at this time. She also has history of CHF. Her main symptom on admission was appeared to have emesis and abdominal discomfort with some loose stools. PAST MEDICAL HISTORY Previous history of pneumonia, C-diff, atrial fibrillation, chronic anticoagulation, sick sinus syndrome, hypertension, hyperlipidemia, diabetes, anxiety, rheumatoid arthritis, coronary artery disease, history of cardiac catheterization, pulmonary hypertension, peripheral arterial disease, and multiple lower extremity ulcers. PAST SURGICAL HISTORY Previous surgeries include cardiac catheterization, appendectomy, hysterectomy, left knee surgery, back surgery, cholecystectomy, cataract surgery, lower extremity stents, D and C, and sinus surgery. CURRENT MEDICATIONS Include Lasix, Protonix, metoprolol, amiodarone, guaifenesin, hydralazine, prednisone, sertraline, glimepiride, NovoLog, ceftriaxone, Zithromax, and pantoprazole. ALLERGIES Sulfa, oxycodone, and aspirin. SOCIAL HISTORY She lives at home with her . No history of alcohol, drug, or Unit #: [id number] #: [id number] Patient: DEMARCO WALKER tobacco abuse. FAMILY HISTORY Noncontributory. HOME MEDICATIONS Included Coreg, hydralazine, prednisone, Zoloft, Prilosec, glimepiride and Zestril. SYSTEMIC REVIEW Lethargy, abdominal discomfort, subjective fever, some shortness of breath. There is no chest pain or headache or dysuria or significant diarrhea at this time. PHYSICAL EXAMINATION GENERAL: Reveals an elderly white female, who is lethargic, poorly communicative, in no obvious distress was noted, however. VITAL SIGNS: Temperature 98.1, heart rate 60, respirations 20, and blood pressure 145/68. No fever was documented during this admission and there was no documented hypotension either. She looks pale. NECK: Supple. There are bilateral edema and superficial ulcers, which looks clean. Pulses are feeble, but palpable. Neck is absolutely supple. Oral hygiene is poor. IV site is clean. LUNGS: Show scattered rhonchi at the bases. HEART: Sounds are muffled, but normal. ABDOMEN: Grossly obese, soft, and nontender. There is no rebound or guarding. Bowel sounds are normal. NEUROLOGIC: She is awake, somewhat lethargic, but able to move all 4 extremities. DIAGNOSTIC STUDIES LABORATORY RESULTS: Blood cultures on 12/09 positive for gram negative rods, 2/2 sets, obtained 15 minutes apart. Urine culture is pending. Culture of the wound is pending as well. Hemoglobin A1c 8.3. Sodium 136, potassium 3.7, chloride 104, CO2 of 26, glucose 119, BUN 37, creatinine 1.4, and creatinine clearance 33.5. Liver function tests are normal. BNP 600. White count is 10, hemoglobin 9.8, and platelets 148. CT chest shows bilateral pleural effusion and basilar infiltrates. Troponin 0.10. Urinalysis shows 25 to 50 wbc's, 2 to 5 rbc's, positive nitrites, positive leukocyte esterase. Her white count on admission was 15.9 with 85% neutrophils. CT of the abdomen and pelvis shows large bilateral pleural effusion, hepatomegaly, otherwise no acute findings were noted. Lactic acid 1.6. IMPRESSION Main ID issue is gram-negative sepsis, unclear source, but suspect urinary tract infection or pneumonia. Infected pleural effusion should be ruled out, although it is deemed less likely. RECOMMENDATION Given the possibility of ESBL-positive organism, I will change current antibiotics to meropenem and discontinue ceftriaxone and Zithromax. We will repeat blood culture stat. Follow up on the clinical course and adjust antibiotics according to susceptibilities. Further recommendation will follow. Dictated by... Unit #: [id number] #: [id number] Patient: DEMARCO WALKER M.D. TM/rachel TD: 12/12/2016 01:43 JOB #: [id number] CONSULTATION REPORT Page 1 of 1 X Jayce Dozier MD X CONSULTATION REPORT
[~2016-12-09 10:07] MED LIST: ACETAMINOPHEN PO; ACETAMINOPHEN325 MG PO; ACETAMINOPHEN500 M7 PO; AMARYL PO; AMARYL2 MG PO; AMIODARONE PO; ANEXSIA 5/325 M1 TA1 PO; ANTI-DIARRHEAL2 M1 PO; ASPIRIN PO; ATENOLOL; ATENOLOL PO; ATENOLOL50 MG PO; ATIVAN PO; ATIVAN0.5 MG PO; BENTYL10 MG PO; CARDIZEM LA PO; CIPRO PO; DARVOCET-N 1001 TAB PO; DICLOFENAC SODI50 MG PO; DYRENIUM100 MG PO; FLAGYL PO; FLAGYL250 M1 PO; FLORASTOR250 M1 PO; FUROSEMIDE40 MG PO; GLIMEPIRIDE2 MG PO; HYDROCODONE-APA1 T45 PO; IMMODIUM1 MG/5 M1 PO; K-DUR10 MEQ PO; KCL PO; KEFLEX500 MG PO; KETOPROFEN PO; LASIX80 MG PO; LEVAQUIN250 MG DOB; LIPITOR PO; LIPITOR40 MG PO; LISINOPRIL PO; LISINOPRIL20 MG PO; LOMOTIL WHITE2.5 M1 PO; LOPERAMIDE HCL2 M1 PO; LORAZEPAM0.5 MG PO; MAG-OX 400400 M1 PO; MAXZIDE 75/50 T1 TAB PO; MEDROL4 MG/DOSE- PO; METHOTREXATE2.5 MG PO; MICRO-K10 MEQ PO; OMEPRAZOLE20 M1 PO; PAROXETINE HCL10 MG PO; POTASSIUM CHLO10 ME2 PO; PRADAXA150 MG PO; PRADAXA75 MG PO; PREDNISONE; PREDNISONE PO; PREDNISONE5 M1 PO; PREDNISONE5 MG PO; PRILOSEC PO; PRINIVIL40 MG PO; PROTONIX PO; PYRIDIUM PO; ROBITUSSIN COU118 ML PO; SOTALOL AF80 M1 PO; TAMIFLU75 M1 PO; TENORMIN25 MG PO; TENORMIN50 MG PO; TRAMADOL HCL50 M1 PO; TRIAMTERENE-HC1 EACH PO; ULTRAM PO; VANCOCIN HCL250 MG PO; VANCOMYCIN250 MG/5 M PO; VANTIN100 MG PO; VANTIN200 MG PO; VIBRAMYCIN100 M1 PO; VICODIN 5/500 T1 TAB; VICODIN 5/500 T1 TAB PO; ZESTRIL40 MG PO; ZOFRAN ODT4 MG PO; [UNRECOGNIZED DRUG - OTHER] PO
[2016-12-09 11:11] LABS: BASOPHIL# 0.1 X10e3 (0-0.3); BASOPHIL% 0.6 % (0-2.5); EOSINOPHIL% 0.1 % (0.0-7.0); HEMATOCRIT 34.3 % (35.0-45.0); HEMOGLOBIN 10.7 gm/dL (12.0-16.0); LYMPHOCYTE# 0.5 X10e3 (1.0-3.5); LYMPHOCYTE% 3.3 % (17.0-45.0); MEAN CELL VOLUME 70.4 FL (83-96); MEAN CORPUSCULAR HEMOGLOBIN 21.9 PG (28-34); MEAN CORPUSCULAR HGB CONC 31.1 g/dL (30-36); MEAN PLATELET VOLUME 9.1 FL (6.5-11.5); MONOCYTE# 1.6 X10e3 (0-1.0); MONOCYTE% 10.2 % (3.0-12.0); NEUTROPHIL# 13.6 X10e3 (1.5-7.1); NEUTROPHIL% 85.8 % (40-75); PLATELET COUNT 185 X10e3 (140-420); RED BLOOD COUNT 4.87 X10e (3.90-5.30); RED CELL DISTRIBUTION WIDTH 21.2 % (11.0-15.5); WHITE BLOOD COUNT 15.9 X10e3 (4.0-10.5)
[2016-12-09 11:12] LABS: DIFF IND YES
[2016-12-09 11:19] LABS: INR 1.2; PARTIAL THROMBOPLASTIN TIME 26.6 SECONDS (23.5-31.3); PROTHROMBIN TIME (PATIENT) 12.6 SECONDS (10.0-11.7)
[2016-12-09 11:23] LABS: POC - CKMB 1.2 ng/mL (0.0-7.9); POC - TROPONIN <0.05 ng/mL (<=0.05)
[2016-12-09 11:30] LABS: ALBUMIN SERUM 3.4 g/dL (3.5-5.0); BILIRUBIN, DIRECT 0.6 mg/dL (0.0-0.2); BILIRUBIN,INDIRECT 1.4 mg/dL (0.0-0.9); BUN/CREATININE RATIO 22.14; CALCIUM SERUM 8.9 mg/dL (8.4-10.2); CREATININE SERUM 1.4 mg/dL (0.6-1.4); GLOM FILT RATE Estimated 33.5 mL/min (>60); POTASSIUM 3.7 mmol/L (3.5-5.1); PROTEIN TOTAL SERUM 6.7 g/dL (6.0-8.3)
[2016-12-09 11:46] LABS: ANISOCYTOSIS SL; PLATELET ESTIMATE NORMAL (NORMAL); POIKILOCYTOSIS SL
[2016-12-09 11:47] LABS: MICROCYTOSIS SL
[2016-12-09] MEDS ORDERED: PATIENT'S PHARMACY (13:56)
[2016-12-09] MEDS ORDERED: COREG3.125 MG PO (13:57)
[2016-12-09] MEDS ORDERED: PREDNISONE PO (13:57)
[2016-12-09] MEDS ORDERED: ZOLOFT PO (13:57)
[2016-12-09] MEDS ORDERED: PRILOSEC PO (13:57)
[2016-12-09] MEDS ORDERED: HYDRALAZINE HCL25 MG PO (13:57)
[2016-12-09] MEDS ORDERED: LISINOPRIL PO (13:58)
[2016-12-09] MEDS ORDERED: KCL PO (13:58)
[2016-12-09] MEDS ORDERED: GLIMEPIRIDE2 MG PO (13:58)
[2016-12-09 15:56] LABS: IRON SERUM 18 ug/dL (28-170); TOTAL IRON BINDING CAPACITY 361 ug/dL (269-535); TRANSFERRIN 258 mg/dL (192-382); TRANSFERRIN SATURATION 5 % (20-50)
[2016-12-09 16:18] LABS: FOLATE (FOLIC ACID) >23.3 ng/mL (>5.8)
[2016-12-09 16:35] LABS: PROCALCITONIN 26.23 NG/ML
[2016-12-09 19:04] LABS: HEMATOCRIT 34.9 % (35.0-45.0); HEMOGLOBIN 10.4 gm/dL (12.0-16.0)
[2016-12-09 20:02] LABS: CK TOTAL 43 IU/L (26-140)
[2016-12-10 00:53] LABS: HEMATOCRIT 35.8 % (35.0-45.0); HEMOGLOBIN 10.7 gm/dL (12.0-16.0)
[2016-12-10 02:18] LABS: CK TOTAL 36 IU/L (26-140)
[2016-12-10 06:55] LABS: URINE SOURCE CLEAN CATCH
[2016-12-10 07:06] LABS: URINE APPEARANCE CLEAR; URINE BILIRUBIN NEG (NEG); URINE BLOOD NEG (NEG); URINE COLOR DK YELLOW; URINE GLUCOSE NEG (NEG); URINE KETONE NEG (NEG); URINE LEUKOCYTE ESTERASE 1+ (NEG); URINE NITRATE POS (NEG); URINE PROTEIN TRACE (NEG)
[2016-12-10 07:07] LABS: CULTURE INDICATED? YES; URINE BACTERIA AUWI 2+ (NEGATIVE); URINE SQUAMOUS EPITHELIAL CELL NONE SEEN /[HPF]; UWBCS1 AUWI 25-50 (0-5)
[2016-12-10 07:47] LABS: BASOPHIL% 0.2 % (0-2.5); DIFF IND NO; HEMATOCRIT 33.6 % (35.0-45.0); HEMOGLOBIN 10.1 gm/dL (12.0-16.0); LYMPHOCYTE# 0.5 X10e3 (1.0-3.5); MEAN CELL VOLUME 70.7 FL (83-96); MEAN CORPUSCULAR HEMOGLOBIN 21.3 PG (28-34); MEAN CORPUSCULAR HGB CONC 30.1 g/dL (30-36); MEAN PLATELET VOLUME 9.5 FL (6.5-11.5); MONOCYTE# 1.2 X10e3 (0-1.0); MONOCYTE% 9.5 % (3.0-12.0); NEUTROPHIL# 11.2 X10e3 (1.5-7.1); NEUTROPHIL% 86.3 % (40-75); PLATELET COUNT 158 X10e3 (140-420); RED BLOOD COUNT 4.76 X10e (3.90-5.30)
[2016-12-10 08:10] LABS: BUN/CREATININE RATIO 22.85; CALCIUM SERUM 8.5 mg/dL (8.4-10.2); CREATININE SERUM 1.4 mg/dL (0.6-1.4); GLOM FILT RATE Estimated 33.5 mL/min (>60); POTASSIUM 3.7 mmol/L (3.5-5.1); PROTEIN TOTAL SERUM 6.3 g/dL (6.0-8.3)
[2016-12-10 12:26] LABS: HEMATOCRIT 32.9 % (35.0-45.0); HEMOGLOBIN 10.1 gm/dL (12.0-16.0)
[2016-12-10 22:15] LABS: HEMATOCRIT 32.7 % (35.0-45.0)
[2016-12-11 05:13] LABS: HEMATOCRIT 32.3 % (35.0-45.0); HEMOGLOBIN 9.8 gm/dL (12.0-16.0); MEAN CELL VOLUME 71.1 FL (83-96); MEAN CORPUSCULAR HEMOGLOBIN 21.6 PG (28-34); MEAN CORPUSCULAR HGB CONC 30.4 g/dL (30-36); MEAN PLATELET VOLUME 9.5 FL (6.5-11.5); RED BLOOD COUNT 4.54 X10e (3.90-5.30); RED CELL DISTRIBUTION WIDTH 21.2 % (11.0-15.5)
[2016-12-11 06:47] LABS: ALBUMIN SERUM 2.9 g/dL (3.5-5.0); BILIRUBIN,TOTAL 0.6 mg/dL (0.2-2.0); BUN/CREATININE RATIO 26.42; CALCIUM SERUM 8.3 mg/dL (8.4-10.2); CREATININE SERUM 1.4 mg/dL (0.6-1.4); GLOM FILT RATE Estimated 33.5 mL/min (>60); MAGNESIUM 1.8 mg/dL (1.6-3.0); POTASSIUM 3.7 mmol/L (3.5-5.1); PROTEIN TOTAL SERUM 6.3 g/dL (6.0-8.3)
[2016-12-12 04:55] LABS: HEMATOCRIT 33.7 % (35.0-45.0); HEMOGLOBIN 10.3 gm/dL (12.0-16.0); MEAN CELL VOLUME 70.3 FL (83-96); MEAN CORPUSCULAR HEMOGLOBIN 21.5 PG (28-34); MEAN CORPUSCULAR HGB CONC 30.6 g/dL (30-36); MEAN PLATELET VOLUME 9.4 FL (6.5-11.5); RED BLOOD COUNT 4.79 X10e (3.90-5.30); RED CELL DISTRIBUTION WIDTH 20.9 % (11.0-15.5); WHITE BLOOD COUNT 10.4 X10e3 (4.0-10.5)
[2016-12-12 06:22] LABS: CALCIUM SERUM 8.5 mg/dL (8.4-10.2); CREATININE SERUM 1.1 mg/dL (0.6-1.4); GLOM FILT RATE Estimated 44.8 mL/min (>60); POTASSIUM 3.7 mmol/L (3.5-5.1)
[2016-12-13 05:22] LABS: HEMATOCRIT 33.1 % (35.0-45.0); HEMOGLOBIN 10.1 gm/dL (12.0-16.0); MEAN CORPUSCULAR HEMOGLOBIN 21.6 PG (28-34); MEAN CORPUSCULAR HGB CONC 30.5 g/dL (30-36); MEAN PLATELET VOLUME 8.8 FL (6.5-11.5); RED BLOOD COUNT 4.66 X10e (3.90-5.30); RED CELL DISTRIBUTION WIDTH 20.5 % (11.0-15.5); WHITE BLOOD COUNT 6.9 X10e3 (4.0-10.5)
[2016-12-13 05:52] LABS: CALCIUM SERUM 8.5 mg/dL (8.4-10.2); GLOM FILT RATE Estimated 50.3 mL/min (>60); POTASSIUM 3.9 mmol/L (3.5-5.1)
[2016-12-13 12:15] LABS: BF TOTAL NUCLEATED CELL COUNT 163 CMM (0-100); BODY FLUID APPEARANCE CLEAR; BODY FLUID SOURCE PLEURAL
[2016-12-13 12:16] LABS: BODY FLUID RBC <1000 CMM
[2016-12-13 13:06] LABS: PROTEIN, BODY FLUID 2.1 gm/dL
[2016-12-14 04:49] LABS: HEMOGLOBIN 9.4 gm/dL (12.0-16.0); MEAN CELL VOLUME 70.6 FL (83-96); MEAN CORPUSCULAR HEMOGLOBIN 21.5 PG (28-34); MEAN CORPUSCULAR HGB CONC 30.4 g/dL (30-36); MEAN PLATELET VOLUME 9.1 FL (6.5-11.5); RED BLOOD COUNT 4.38 X10e (3.90-5.30); RED CELL DISTRIBUTION WIDTH 20.8 % (11.0-15.5); WHITE BLOOD COUNT 8.3 X10e3 (4.0-10.5)
[2016-12-14 05:39] LABS: BUN/CREATININE RATIO 25.55; CALCIUM SERUM 8.3 mg/dL (8.4-10.2); CREATININE SERUM 0.9 mg/dL (0.6-1.4); GLOM FILT RATE Estimated 57.1 mL/min (>60)
== END 2016-12-14 20:25 | DRG 871 ==
LOC: CED 10:07 → CEDOF 14:40 → CED 15:18 → CEDOF 15:18 → C3A PCU 16:48 → CEDOF 16:48 → C3A PCU 16:48
PROVIDERS: Emergency Medicine; Family Medicine; Internal Medicine Cardiovascular Disease; Internal Medicine Gastroenterology
PROC: 0D758ZZ Dilation of Esophagus, Via Natural or Artificial Opening Endoscopic (ICD-10-PCS; principal; 2016-12-10 16:57)
PROC: 0DB68ZX Excision of Stomach, Via Natural or Artificial Opening Endoscopic, Diagnostic (ICD-10-PCS; 2016-12-10 16:57)
PROC: 02HV33Z Insertion of Infusion Device into Superior Vena Cava, Percutaneous Approach (ICD-10-PCS; 2016-12-13)
PROC: 0W9930Z Drainage of Right Pleural Cavity with Drainage Device, Percutaneous Approach (ICD-10-PCS; 2016-12-13)
DX: A41.9 Sepsis, unspecified organism (principal); J18.9 Pneumonia, unspecified organism; J96.01 Acute respiratory failure with hypoxia; I50.43 Acute on chronic combined systolic (congestive) and diastolic (congestive) heart failure; I47.2 Ventricular tachycardia; J90 Pleural effusion, not elsewhere classified; N17.9 Acute kidney failure, unspecified; I49.5 Sick sinus syndrome; E11.22 Type 2 diabetes mellitus with diabetic chronic kidney disease; I11.0 Hypertensive heart disease with heart failure; F03.90 Unspecified dementia, unspecified severity, without behavioral disturbance, psychotic disturbance, mood disturbance, and anxiety; N39.0 Urinary tract infection, site not specified; E11.51 Type 2 diabetes mellitus with diabetic peripheral angiopathy without gangrene; I48.91 Unspecified atrial fibrillation; E78.5 Hyperlipidemia, unspecified; F41.9 Anxiety disorder, unspecified; I25.10 Atherosclerotic heart disease of native coronary artery without angina pectoris; M06.9 Rheumatoid arthritis, unspecified; I27.2 Other secondary pulmonary hypertension; D50.9 Iron deficiency anemia, unspecified; K29.60 Other gastritis without bleeding; K22.2 Esophageal obstruction; B96.5 Pseudomonas (aeruginosa) (mallei) (pseudomallei) as the cause of diseases classified elsewhere; Z90.49 Acquired absence of other specified parts of digestive tract; Z90.710 Acquired absence of both cervix and uterus; Z88.6 Allergy status to analgesic agent; Z79.01 Long term (current) use of anticoagulants; Z79.84 Long term (current) use of oral hypoglycemic drugs; Z88.5 Allergy status to narcotic agent; Z88.2 Allergy status to sulfonamides
CPT/HCPCS: 36415; 71010; 71250; 74176; 76937; 77001; 80048; 80053; 80076; 81003; 82042; 82308; 82550; 82553; 82607; 82728; 82746; 82947; 83036; 83540; 83550; 83605; 83615; 83735; 83880; 84157; 84484; 85014; 85018; 85025; 85027; 85610; 85730; 86850; 86900; 86901; 87040; 87070; 87077; 87086; 87088; 87186; 87205; 88108; 88305; 89051; 92610; 93005; 93306; 94760; 96361; 96374; 97110; 97116; 97162; 97166; 97530; 97535; 99285; C1751; C9113; G8978-GO; G8978-GP; G8979-GO; G8979-GP; G8980-GP; G8987-GO; G8988-GO; G8996-GN; G8997-GN; G8998-GN; J0456; J0696; J1642; J1815; J1940; J2185; J2370; J2405

== ENCOUNTER 2017-01-17 15:39 | Inpatient (IN) | payer MEDICARE, BC ==
[~2017-01-17] VITALS: Ht 165.1 cm; Wt 59.6 kg
--- NOTE | ~2017-01-17 | HP ---
Unit #: [id number] #: [id number] Patient: DEMARCO WALKER [id number] [place], [place] [address] [id number] I MR#: [id number] NAME: DEMARCO WALKER. ROOM: 98453 Age: 86 Sex: F Admission Date: 01/17/2017 : 1930 Attending Physician: Mulu Abdalla M.D. Primary Care Physician: Keven Smith M.D. HISTORY AND PHYSICAL CHIEF COMPLAINT Shortness of breath with large right pleural effusion. HISTORY This pleasant 86-year-old female with mild LV dysfunction, paroxysmal atrial fibrillation, hypertension and rheumatoid arthritis, is admitted for increasing shortness of breath. The patient was last admitted to this facility five weeks ago for what was thought to be pneumonia, but was ultimately diagnosed as fluid overload/congestive heart failure and a large right pleural effusion. She underwent a thoracentesis, and the fluid was transudative. An echo revealed an ejection fraction of 45 to 50% with severe TR, moderate MR, moderate AR. She also was treated for ESBL bacteremia secondary to a urinary tract infection. Afterwards went to rehab for 10 days. States that she became increasingly short of breath over the past 2 weeks, does experience orthopnea, but denies definite increased pedal edema. Does make note of intermittent back/chest pain but I believe this may be longstanding. She presented back to this emergency department tonight with a very large right pleural effusion, her O2 saturation is 95% on room air. She denies cough with the above or pleuritic chest pain. PAST MEDICAL HISTORY 1. AODM. 2. History of C. difficile colitis. 3. Paroxysmal atrial fibrillation, no longer anticoagulated due to previous anemia. 4. Admission five weeks ago for congestive heart failure with a large right pleural effusion requiring thoracentesis. Fluid was transudative. Echo ejection fraction 45% to 50%, severe TR, moderate MR, moderate AR. 5. A recent admission for anemia. An EGD performed showed an esophageal stricture which was dilated along with moderate gastritis. Patient was thought to be too frail for a colonoscopy. 6. ESBL bacteremia from UTI five weeks ago. 7. Hypertension. 8. Hyperlipidemia. 9. AODM. 10. Anxiety. 11. Rheumatoid arthritis. 12. CAD. Cardiac catheterization 05/2012 revealed a 90% stenosis of the ostium of the first diagonal branch of the LAD, 40% to 50% stenosis in the proximal LAD, 50% stenosis at the ostium of the right coronary Unit #: [id number] #: [id number] Patient: DEMARCO WALKER artery. Patient is being treated medically. 13. Pulmonary hypertension. 14. Peripheral vascular disease, status post lower extremity stent. 15. Appendectomy. 16. Hysterectomy. 17. Left knee surgery. 18. Back surgery. 19. Cholecystectomy. 20. Cataract extraction. 21. D and C. 22. Sinus surgery. ALLERGIES Allergies to oxycodone and sulfa. HOME MEDICATIONS 1. Protonix 20 mg daily. 2. Lasix 40 mg daily. 3. Potassium 10 mEq b.i.d. 4. Amaryl 2 mg q.a.m. 5. Lisinopril 40 mg daily. 6. Coreg 3.125 mg b.i.d. 7. Hydralazine 25 mg t.i.d. 8. Prednisone 5 mg daily. 9. [place] p.r.n. FAMILY HISTORY Noncontributory given the patient's age. SOCIAL HISTORY The patient lives with her . She is a lifelong nonsmoker, does not drink alcohol. REVIEW OF SYSTEMS Notable for shortness of breath, back pain, rheumatoid arthritis, diabetes, heart disease, lower abdominal discomfort, abovementioned surgeries. All other systems were reviewed and are otherwise negative. PHYSICAL EXAMINATION GENERAL: Pleasant 86-year-old female currently in no acute distress. VITAL SIGNS: Temperature 98.1. Pulse 72. Respirations 18. Blood pressure 175/72. O2 saturation is 95% on room air. HEENT: Eyes PERRLA, extraocular muscles are intact. Pharynx is benign. NECK: Supple, without adenopathy or thyromegaly. Elevated JVD noted. CHEST: With diminished breath sounds on the right. CARDIAC: Normal S1 and S2, soft systolic murmur best heard along the left sternal border. ABDOMEN: Bowel sounds are present. Mild suprapubic tenderness. No rebound, guarding. No hepatosplenomegaly or masses. EXTREMITIES: Patient has bilateral lower extremity dressings and wraps in place. NEUROLOGIC EXAM: Patient is awake, alert. She is fairly oriented. Her cranial nerves are intact except that she is hard of hearing. She has equal strength throughout but generally weak on exam. DIAGNOSTIC STUDIES LABS: Hematocrit is 34.7 which is improved, normal white count, platelet count, MCV of 72.3. SMA-12: Glucose 132. BNP is 644. Cardiac markers Unit #: [id number] #: [id number] Patient: DEMARCO WALKER are negative. IMAGING: Chest x-ray new large right pleural effusion, trace pleural effusion on the left and likely atelectasis. CARDIAC: EKG: Afib, rate control of 60, poor R-wave progression, left axis deviation. ASSESSMENT 1. Increasing right pleural effusion which was transudative on last admission which may represent decompensated congestive heart failure. 2. CAD with LV dysfunction, ejection fraction 40 to 50% and valvular heart disease along with paroxysmal atrial fibrillation. Patient currently is in atrial fibrillation. 3. Essential hypertension. 4. Recent ESBL UTI/bacteremia. 5. Rheumatoid arthritis. 6. AODM. 7. Peripheral vascular disease with lower extremity wound. 8. Back pain. PLANS 1. IV Lasix, obtain Is and Os and daily weights. 2. Cardiology and Pulmonary consultation. 3. DVT prophylaxis. 4. Will recheck urinalysis. Dictated by Mulu Abdalla M.D. AML/cf TD: 01/17/2017 21:56 JOB #: [id number] HISTORY AND PHYSICAL Page 1 of 1 X Mulu Abdalla MD X HISTORY AND PHYSICAL
--- NOTE | ~2017-01-17 | XA203 ---
[facility] A Service of [facility] RADIOLOGY TEXT RESULTS PATIENT: DEMARCO WALKER LOCATION: [facility] 54- : [birth year] UNIT #: [id number] AGE: [address]: Dimitris Michele MD SEX: F ORDER DR: [id number] [facility] [address] [facility]. [place], [place] [address] [id number] I MR#: [id number] Acc #: [id number] NAME: DEMARCO WALKER. : 1930 SEX: F STUDY DATE/TIME: 01/18/2017 14:15 UNIT: [facility] ROOM: [facility] STUDY DESCRIPTION: XA Thoracentesis Attending Physician: Dimitris Michele M.D. Ordering Physician: Oanh Moon M.D. Primary Care Physician: Keven Smith M.D. MEDICAL IMAGING REPORT This report is preliminary unless electronic signature is present EXAM Ultrasound-guided right thoracentesis. HISTORY Right pleural effusion. PROCEDURE Using real-time ultrasound guidance a skin site was selected and marked, sterilely prepped and draped and locally anesthetized. A Yueh needle catheter was used for right thoracentesis and 2.3 liters of fluid was removed. There were no complications and the patient tolerated the procedure well. IMPRESSION 1. Successful ultrasound-guided right thoracentesis with removal of 2.3 liters of fluid without complication. 2. Static ultrasound image was preserved. Dictated by... Tra Duran M.D. THIS IS AN ELECTRONICALLY VERIFIED REPORT Tra Duran M.D. at 01/20/2017 2:08 PM TEV/gz TD: 01/19/2017 07:43 JOB #: [id number] MEDICAL IMAGING REPORT Page 1 of 1 COPY
--- NOTE | ~2017-01-17 | CO ---
Unit #: [id number] #: [id number] Patient: DEMARCO WALKER [id number] [facility]. [place], [place] [address] [id number] I MR#: [id number] NAME: DEMARCO WALKER. ROOM: 548 Age: 86 Sex: F Admission Date: 01/17/2017 : 1930 Attending Physician: Dimitris Michele M.D. Primary Care Physician: Keven Smith M.D. Consultation Date: 01/18/2017 CONSULTATION REPORT DICTATED FOR PHYSICIAN Dalton Richter M.D., [facility] Cardiology. REASON FOR CONSULTATION Shortness of breath over the past couple of weeks. HISTORY OF PRESENT ILLNESS The patient is an 86-year-old white female who is known to Dr. Richter with a history of permanent atrial fibrillation, hypertension, heart catheterization in 2012 that showed nonobstructive disease, echo in 12/2016 with an EF of 45% to 50%, moderate pulmonary hypertension, chronic systolic and diastolic heart failure, hyperlipidemia, diabetes, hypothyroid, history of syncope, recent admission about a month ago with a large right pleural effusion requiring thoracentesis, anemia with a recent EGD where stricture was dilated and she had moderate gastritis. The patient came to the ER with a complaint of increasing shortness of breath over the past 2 weeks, but especially over the past couple of days. The patient states that at night she requires to sit up on the edge of the bed multiple times throughout the night due to her breathing. She feels smothered when she is lying down. The patient also states that her shortness of breath has made it very difficult for her to talk or be very active where she has just been lying around the bed primarily. She does also complain of some lightheadedness, palpitations, and diaphoresis, but denies any nausea, vomiting, fevers, or chills. Cardiac cath in 2012 showed proximal LAD lesion 50%, first diagonal of the LAD was 90%, RCA at the ostium 50%. Echo in 12/2016 showed LVEF of 45% to 50%, moderately dilated right atrium, moderately enlarged right atrium, moderately dilated RV, moderate AR, mild , moderate MR, moderate to severe TR, and moderate SC, RVSP of 53 mmHg. PAST MEDICAL HISTORY 1. Permanent atrial fibrillation. 2. Hypertension. 3. Nonobstructive coronary artery disease per catheterization in 2012 with a proximal LAD lesion of 50%, first diagonal of LAD was 90%, RCA 50% at the ostium. 4. Echo in 12/2016 with an LVEF of 45% to 50%, moderately dilated right atrium, moderately enlarged right atrium, moderately dilated right ventricle, moderate aortic regurgitation, mild aortic stenosis, moderate mitral regurgitation, moderate to severe tricuspid regurgitation, moderate pulmonic valve regurgitation, RVSP of 53 mmHg. 5. Chronic systolic and diastolic heart failure. 6. Hyperlipidemia. Unit #: [id number] #: [id number] Patient: DEMARCO WALKER 7. Diabetes. 8. Hypothyroid. 9. History of syncope. 10. Recent admission for a large right pleural effusion requiring thoracentesis. 11. Anemia with recent EGD; stricture was dilated and moderate gastritis. 12. Rheumatoid arthritis. 13. Anxiety. 14. Moderate pulmonary hypertension. 15. PVD, status post lower extremity stent. PAST SURGICAL HISTORY Includes: 1. Appendectomy. 2. Hysterectomy. 3. Left knee surgery. 4. Back surgery. 5. Cholecystectomy. 6. Cataract extraction. 7. D and C. 8. Sinus surgery. ALLERGIES Include Percocet and sulfa. HOME MEDICATIONS We will clarify with family as the record in the chart compared to her discharge summary compared to what the patient reported are very different. We will discuss with her and add these medications at a later time. REVIEW OF SYSTEMS See HPI. PHYSICAL EXAMINATION GENERAL: This is an 86-year-old white female, who is alert and oriented x3, in no apparent distress. VITAL SIGNS: Blood pressure is 140/90, pulse 48, respirations 20, and temperature was 98.2. HEENT: Pupils are equal, round, and reactive. Oral mucosa is moist. NECK: Positive JVD. No lymphadenopathy. No carotid bruits. HEART: S1 and S2, irregularly irregular with a slow rate. Grade 2/6 systolic murmur at the left lower sternal border. LUNGS: Decreased breath sounds, especially in the right lower chest. ABDOMEN: Soft. Bowel sounds positive. Nontender. Nondistended. EXTREMITIES: Positive bilateral lower extremity swelling. NEUROLOGIC: No neuro deficits noted. DIAGNOSTIC STUDIES LABORATORY RESULTS: Troponin less than 0.05 and less than 0.05 and 0.05. BNP of 644. Sodium 140, potassium 3.4, chloride 105, CO2 of 27, glucose 65, BUN 17, creatinine 1, GFR 50.3. White count 6.6, hemoglobin 10.3, hematocrit 33.2, and platelets are 259. IMAGING STUDIES: Chest x-ray report not available, but upon review with Dr. Richter, appears to show a large right pleural effusion. CARDIOVASCULAR: EKG shows atrial fibrillation with a slow ventricular Unit #: [id number] #: [id number] Patient: DEMARCO WALKER rate of 59 with poor progression of R-wave as well as some nonspecific T-wave abnormalities. IMPRESSION 1. Moderate pulmonary hypertension. 2. Severe right ventricular enlargement and severe tricuspid regurgitation. 3. Left ventricular ejection fraction of 45%. 4. Nonobstructive coronary artery disease per catheterization in 2012. 5. Permanent atrial fibrillation. 6. Hypertension. 7. Hyperlipidemia. 8. Diabetes. 9. History of right pleural effusion requiring thoracentesis last month. 10. Anemia on last admission with an esophagogastroduodenoscopy where stricture was dilated and moderate gastritis. PLAN 1. After thoracentesis, we will plan to increase diuretics. We will have to discuss with the what the patient was actually taking at home and make sure that we have the correct dose documented to make the adjustments. 2. The patient should undergo thoracentesis for the pleural effusion. We will plan to hold Coreg for now due to decreased heart rates on the telemetry down into the 30s briefly. Dr. Richter will reinstate beta-olu when appropriate and the patient may need to be discussed with about permanent pacemaker placement. We will place on strict Is and Os and 1800 mL fluid restriction per day. We will check a lipid profile and an A1c with the labs drawn today. Further recommendations pending the patient's current workup as well as the patient's response to treatment. Dictated by... SIMONA Martinez TD: 01/19/2017 06:26 JOB #: [id number] CONSULTATION REPORT Page 1 of 1 X X CONSULTATION REPORT
--- NOTE | ~2017-01-17 | DS ---
Unit #: [id number] #: [id number] Patient: DEMARCO WALKER [id number] [address] [address] [id number] I MR#: [id number] NAME: DEMARCO WALKER. ROOM: 548 Age: 86 Sex: F Admission Date: 01/17/2017 : 1930 Discharge Date: 01/19/2017 Attending Physician: Dimitris Michele M.D. Primary Care Physician: Keven Smith M.D. DISCHARGE SUMMARY PRIMARY DIAGNOSES 1. Recurrent right pleural effusion. 2. Acute hypoxemic respiratory failure, secondary to pleural effusion. 3. Volume overload. 4. Diabetes mellitus type 2 with hypoglycemia during this hospitalization. 5. Chronic anemia. 6. Right-sided heart failure, acute on chronic. 7. Atrial fibrillation. HOSPITAL COURSE Ms. Demarco Walker is a frail 86-year-old white female with a history of rheumatoid arthritis, who was previously in our hospital approximately one and a half months ago with pleural effusion and had evaluation at that time with Dr. Moon with pulmonology and Dr. Richter with cardiology. She has done her best to maintain compliance with a low-sodium diet but presented with worsening right-sided pleural effusion and had to have therapeutic paracentesis and repeat echocardiogram during this hospitalization. Her ejection fraction was 45% to 50% and she had findings on the echo suggestive of right ventricular volume overload which appeared to be severe as well as moderate aortic regurgitation, moderate mitral regurgitation, and moderate pulmonary valve regurgitation. Dr. Moon and Dr. Richter have cleared the patient for discharge but have recommended close followup with increased diuresis. Dr. Moon would like the patient to follow up with his partner, Dr. Elliott, in two weeks in order to follow up on cytology and culture results from the pleural effusion to "rule out empyema versus malignancy." DISCHARGE DISPOSITION To home with home health. DISCHARGE ACTIVITY With her wheeled walker and assistance at all times. DISCHARGE DIET Strict 2000 mg sodium restriction per day. FOLLOWUP Followup is with Dr. Richter on February [address] Elliott with pulmonology in two weeks. Followup with a basic metabolic profile and a B natriuretic peptide on February 06, which will be sent to Dr. Richter. DISCHARGE MEDICATIONS 1. Lasix 40 mg at 8 a.m. and 20 mg at 4 p.m. each day. Unit #: [id number] #: [id number] Patient: DEMARCO WALKER 2. Spironolactone 25 mg tablet one half tablet p.o. daily. 3. Prednisone 5 mg p.o. daily. 4. Zoloft 50 mg p.o. daily. 5. Coreg 3.125 mg p.o. b.i.d. 6. Hydralazine 25 mg p.o. b.i.d. 7. Lisinopril 40 mg p.o. daily. 8. Prilosec 20 mg p.o. daily. 9. Potassium chloride 10 mEq p.o. b.i.d. 10. Patient was specifically instructed to stop her glimepiride due to her low blood sugars and at this time, I do not believe she needs to strictly follow a diabetic diet. Dictated by... Alejandra Valadez/argentina TD: 01/21/2017 10:19 JOB #: [id number] DISCHARGE SUMMARY Page 1 of 1 X Dimitris Michele MD X DISCHARGE SUMMARY
--- NOTE | ~2017-01-17 | CR72 ---
[facility] A Service of [facility] RADIOLOGY TEXT RESULTS PATIENT: DEMARCO WALKER LOCATION: [facility] 54- : [birth year] UNIT #: [id number] AGE: [address]: Dimitris Michele MD SEX: F ORDER DR: [id number] [facility] [address] [place], [place] [address] [id number] I MR#: [id number] Acc #: [id number] NAME: DEMARCO WALKER. : 1930 SEX: F STUDY DATE/TIME: 01/17/2017 19:34 UNIT: [facility] ROOM: [facility] STUDY DESCRIPTION: CR Chest Single View Portable Attending Physician: Dimitris Michele M.D. Ordering Physician: Chino Bates D.O. Primary Care Physician: Keven Smith M.D. MEDICAL IMAGING REPORT This report is preliminary unless electronic signature is present EXAM AP view of the chest COMPARISON December 13, 2016, December 09, 2016. INDICATIONS 86-year-old female with dyspnea for 3 weeks, worsening over last 4 days. History of pneumonia. FINDINGS There is new large right pleural effusion with leftward cardiomediastinal shift. There may be small left pleural effusion as well with associated left basilar atelectasis or pneumonia. There are increased opacities in the medial right upper lobe perhaps reflecting atelectasis but pneumonia cannot be excluded. No evidence of pneumothorax. IMPRESSION New large right pleural effusion with associated leftward cardiomediastinal shift. There may be trace left pleural effusion with minimal left basilar opacities favoring atelectasis. There are new opacities in the medial right upper lobe which may reflect atelectasis but pneumonia cannot be excluded. Imaging followup is recommended to ensure resolution of the findings in the chest. Dictated by... Jonathan Hess M.D. THIS IS AN ELECTRONICALLY VERIFIED REPORT Jonathan Hess M.D. at 01/19/2017 3:39 PM BLM/lb TD: 01/18/2017 11:55 [facility] A Service of [facility] RADIOLOGY TEXT RESULTS PATIENT: DEMARCO WALKER LOCATION: [facility] 548-01 : [birth year] UNIT #: [id number] AGE: [address]: Dimitris Michele MD SEX: F ORDER DR: JOB #: [id number] MEDICAL IMAGING REPORT Page 1 of 1 COPY
--- NOTE | ~2017-01-17 | EKG ---
PATIENT: DEMARCO WALKER UNIT #: [id number] Ventricular Rate: 59 BPM Atrial Rate: 43 BPM QRS Duration: 104 ms Q-T Interval: 414 ms QTC Calculation(Bezet): 409 ms Calculated R [place]: -68 degrees Calculated T [place]: -159 degrees Diagnosis Line: Atrial fibrillation with slow ventricular response Diagnosis Line: Left axis deviation Diagnosis Line: Septal infarct , age undetermined Diagnosis Line: Inferior infarct (cited on or before 09-DEC-2016) Diagnosis Line: ST and T wave abnormality, consider lateral ischemia Diagnosis Line: Abnormal ECG Diagnosis Line: When compared with ECG of 11-DEC-2016 08:43, Diagnosis Line: Septal infarct is now Present Diagnosis Line: Nonspecific T wave abnormality now evident in Diagnosis Line: Inferior leads Diagnosis Line: Inverted T waves have replaced nonspecific T wave Diagnosis Line: abnormality in Lateral leads Diagnosis Line: Confirmed by JEREL JASSO MD ([id number]) on Diagnosis Line: 01/18/2017 2:09:29 PM INTERPRETING MD: LOUISA HUTCHINSON
--- NOTE | ~2017-01-17 | CR72 ---
[facility] A Service of [facility] RADIOLOGY TEXT RESULTS PATIENT: DEMARCO WALKER LOCATION: [address] [place] [address] : [birth year] UNIT #: [id number] AGE: [address]: Dimitris Michele MD SEX: F ORDER DR: [id number] [facility] [address] [facility]. [place], [place] [address] [id number] I MR#: [id number] Acc #: [id number] NAME: DEMARCO WALKER. : 1930 SEX: F STUDY DATE/TIME: 01/18/2017 14:42 UNIT: [facility] ROOM: [facility] STUDY DESCRIPTION: CR Chest Single View Portable Attending Physician: Dimitris Michele M.D. Ordering Physician: Tra Duran M.D. Primary Care Physician: Keven Smith M.D. MEDICAL IMAGING REPORT This report is preliminary unless electronic signature is present EXAM Portable chest 1-view 01/18/2017 HISTORY Status post right thoracentesis COMPARISON 01/17/1978 FINDINGS Near complete resolution of right pleural effusion following right thoracentesis, no pneumothorax. Mild cardiomegaly redemonstrated, no new abnormality. Dictated by... Tra Duran M.D. THIS IS AN ELECTRONICALLY VERIFIED REPORT Tra Duran M.D. at 01/20/2017 2:08 PM TEV/rnr TD: 01/19/2017 01:02 JOB #: [id number] MEDICAL IMAGING REPORT Page 1 of 1 COPY
--- NOTE | ~2017-01-17 | CO ---
Unit #: [id number] #: [id number] Patient: DEMARCO WALKER [id number] [address] [address] [id number] I MR#: [id number] NAME: DEMARCO WALKER. ROOM: 548 Age: 86 Sex: F Admission Date: 01/17/2017 : 1930 Attending Physician: Dimitris Michele M.D. Primary Care Physician: Keven Smith M.D. Consultation Date: 01/18/2017 CONSULTATION REPORT REASON FOR CONSULT Pleural effusion. HISTORY OF PRESENT ILLNESS This is a very pleasant 86-year-old female, who is well known to me from previous admission with past medical history significant for mild LV dysfunction with ejection fraction of 40% to 45%, paroxysmal atrial fibrillation, hypertension, rheumatoid arthritis who presented to the emergency room with progressive shortness of breath for the last few days. Patient stated that she has been short winded for a while but much so over the last few days. She denied any fever, but she had some chills. No cough or chest pain. Patient is on diuretics at home, and she is compliant with her medication. Patient is on no oxygen at home and her saturation was 95% upon presentation to the emergency room. PAST MEDICAL HISTORY 1. Diabetes. 2. History of Clostridium difficile colitis. 3. Paroxysmal atrial fibrillation. 4. Congestive heart failure with ejection fraction of 40% to 50%. 5. Right heart failure. 6. Anemia. 7. History of ESBL bacteremia. 8. Hypertension. 9. Hyperlipidemia. 10. Anxiety. 11. Rheumatoid arthritis. 12. Coronary artery disease. 13. Pulmonary hypertension. 14. Peripheral vascular disease. PAST SURGICAL HISTORY 1. Appendectomy. 2. Hysterectomy. 3. Left knee surgery. 4. Back surgery. 5. Cholecystectomy. 6. Cataract extraction. 7. D and C. 8. Sinus surgery. ALLERGIES Oxycodone, sulfa. Unit #: [id number] #: [id number] Patient: DEMARCO WALKER HOME MEDICATIONS 1. Protonix. 2. Lasix. 3. Potassium. 4. Amaryl. 5. Lisinopril. 6. Coreg. 7. Hydralazine. 8. [place]. FAMILY HISTORY Noncontributory. SOCIAL HISTORY Patient lives with her . She is a lifelong nonsmoker. No history of alcohol or drug abuse. REVIEW OF SYSTEMS A 12-point review of systems was obtained and was negative except for what was mentioned in the HPI. PHYSICAL EXAMINATION GENERAL: The patient is in no acute distress, but she feels weak. VITAL SIGNS: Blood pressure is 169/65, respiratory rate 16, O2 saturation 98%. HEENT: Atraumatic, normocephalic. PERRLA. EOMI. NECK: Supple. No JVD. No lymphadenopathy. CHEST: Decreased breath sounds bilaterally, mainly on the right side. HEART: S1, S2 with systolic murmur. ABDOMEN: Soft, nontender. Bowel sounds are positive. No hepatosplenomegaly. EXTREMITIES: Wrapped on both sides. SKIN: No rashes. CENTRAL NERVOUS SYSTEM: Awake, alert, oriented x3. No focal motor/sensory deficits. DIAGNOSTIC STUDIES LABORATORY: Creatinine 1, sodium 140. White blood count 6.6, hemoglobin 10.3. IMAGING: Chest x-ray is consistent with massive right-sided pleural effusion. ASSESSMENT 1. Right-sided pleural effusion. 2. Right heart failure. 3. Left ventricular dysfunction. 4. Diabetes. 5. History of extended spectrum beta lactamases bacteremia. 6. Hypertension. 7. Anxiety. 8. Rheumatoid arthritis. 9. Pulmonary hypertension. PLAN 1. The patient's oxygen saturation on room air was 95%, so her oxygen will be weaned down/off as tolerated. 2. Given the size of her pleural effusion, other etiology like empyema, Unit #: [id number] #: [id number] Patient: DEMARCO WALKER rheumatoid arthritis, hemithorax needs to be ruled out. Patient had a recent thoracentesis from the left side which was consistent with transudative. However, again the size is concerning for something worse. 3. Thoracentesis this morning. 4. IV or p.o. diuretics to be deferred to cardiology. 5. We will assess echocardiogram result from previous admission. 6. Deep venous thrombosis prophylaxis. I would like to thank Dr. Hickey for allowing me to be part of this patient's care. Dictated by... Alejandra George TD: 01/18/2017 16:49 JOB #: [id number] CONSULTATION REPORT Page 1 of 1 X AMY MEJÍA MD CONSULTATION REPORT
[~2017-01-17 15:39] MED LIST changes: +COREG3.125 MG PO; +HYDRALAZINE HCL25 MG PO; +PATIENT'S PHARMACY; +ZOLOFT PO
[2017-01-17 18:07] LABS: BASOPHIL% 0.5 % (0-2.5); EOSINOPHIL# 0.1 X10e3 (0-0.7); HEMATOCRIT 34.7 % (35.0-45.0); HEMOGLOBIN 10.7 gm/dL (12.0-16.0); LYMPHOCYTE# 0.9 X10e3 (1.0-3.5); LYMPHOCYTE% 11.6 % (17.0-45.0); MEAN CELL VOLUME 72.3 FL (83-96); MEAN CORPUSCULAR HEMOGLOBIN 22.4 PG (28-34); MEAN PLATELET VOLUME 7.6 FL (6.5-11.5); MONOCYTE# 1.1 X10e3 (0-1.0); MONOCYTE% 13.8 % (3.0-12.0); NEUTROPHIL# 5.8 X10e3 (1.5-7.1); NEUTROPHIL% 73.1 % (40-75); PLATELET COUNT 279 X10e3 (140-420); RED BLOOD COUNT 4.79 X10e (3.90-5.30); RED CELL DISTRIBUTION WIDTH 21.2 % (11.0-15.5)
[2017-01-17 18:10] LABS: DIFF IND NO
[2017-01-17 18:27] LABS: ALBUMIN SERUM 3.6 g/dL (3.5-5.0); BILIRUBIN, DIRECT 0.2 mg/dL (0.0-0.2); BILIRUBIN,TOTAL 1.2 mg/dL (0.2-2.0); BUN/CREATININE RATIO 16.66; CALCIUM SERUM 9.2 mg/dL (8.4-10.2); CREATININE SERUM 1.2 mg/dL (0.6-1.4); GLOM FILT RATE Estimated 40.3 mL/min (>60); PROTEIN TOTAL SERUM 7.8 g/dL (6.0-8.3)
[2017-01-17 19:19] LABS: POC - CKMB 2.3 ng/mL (0.0-7.9); POC - TROPONIN <0.05 ng/mL (<=0.05)
[2017-01-17 19:58] LABS: POC - CKMB 2.8 ng/mL (0.0-7.9); POC - TROPONIN <0.05 ng/mL (<=0.05)
[2017-01-18 05:25] LABS: BASOPHIL# 0.1 X10e3 (0-0.3); BASOPHIL% 0.9 % (0-2.5); EOSINOPHIL# 0.3 X10e3 (0-0.7); EOSINOPHIL% 4.1 % (0.0-7.0); HEMATOCRIT 33.2 % (35.0-45.0); HEMOGLOBIN 10.3 gm/dL (12.0-16.0); LYMPHOCYTE% 14.9 % (17.0-45.0); MEAN CELL VOLUME 72.3 FL (83-96); MEAN CORPUSCULAR HEMOGLOBIN 22.4 PG (28-34); MEAN PLATELET VOLUME 7.6 FL (6.5-11.5); MONOCYTE# 1.2 X10e3 (0-1.0); MONOCYTE% 17.9 % (3.0-12.0); NEUTROPHIL# 4.1 X10e3 (1.5-7.1); NEUTROPHIL% 62.2 % (40-75); PLATELET COUNT 259 X10e3 (140-420); RED BLOOD COUNT 4.59 X10e (3.90-5.30); RED CELL DISTRIBUTION WIDTH 21.1 % (11.0-15.5); WHITE BLOOD COUNT 6.6 X10e3 (4.0-10.5)
[2017-01-18 06:04] LABS: CALCIUM SERUM 8.6 mg/dL (8.4-10.2); GLOM FILT RATE Estimated 50.3 mL/min (>60); POTASSIUM 3.4 mmol/L (3.5-5.1)
[2017-01-18 06:24] LABS: DIFF IND NO
[2017-01-18 11:05] LABS: CHOLESTEROL 155 mg/dL (0-200); HDL CHOLESTEROL 40 mg/dL (35-95); LDL CHOLESTEROL 100 mg/dL ([, -130]); LDL/HDL RATIO 3 RATIO (0-4); TRIGLYCERIDES 74 mg/dL (10-160)
[2017-01-18 13:46] LABS: INR 1.1; PARTIAL THROMBOPLASTIN TIME 27.5 SECONDS (23.5-31.3)
[2017-01-18 15:19] LABS: PROTEIN, BODY FLUID 4.3 gm/dL
[2017-01-18 16:25] LABS: BF TOTAL NUCLEATED CELL COUNT 1325 CMM (0-100); BODY FLUID APPEARANCE HAZY; BODY FLUID RBC 16910 CMM; BODY FLUID SOURCE PLEURAL
[2017-01-19 05:58] LABS: HEMATOCRIT 32.1 % (35.0-45.0); HEMOGLOBIN 9.8 gm/dL (12.0-16.0)
[2017-01-19 06:27] LABS: BUN/CREATININE RATIO 21.11; CALCIUM SERUM 8.5 mg/dL (8.4-10.2); CREATININE SERUM 0.9 mg/dL (0.6-1.4); GLOM FILT RATE Estimated 57.1 mL/min (>60); MAGNESIUM 1.9 mg/dL (1.6-3.0); POTASSIUM 4.1 mmol/L (3.5-5.1)
[2017-01-19] MEDS ORDERED: ALDACTONE PO (18:17)
[2017-01-19] MEDS ORDERED: FUROSEMIDE40 MG PO (18:18)
== END 2017-01-19 19:26 | disposition home health service (06) | DRG 291 ==
LOC: CED 15:39 → CEDOF 21:00 → C5B 21:10 → CED 21:10 → CEDOF 21:10 → C5B 01-18 08:22 → CEDOF 01-18 08:22 → C5B 01-19 19:26
PROVIDERS: Emergency Medicine; Internal Medicine; Radiology Diagnostic Radiology
PROC: 0W9930Z Drainage of Right Pleural Cavity with Drainage Device, Percutaneous Approach (ICD-10-PCS; principal; 2017-01-18)
DX: I11.0 Hypertensive heart disease with heart failure (principal); J96.01 Acute respiratory failure with hypoxia; J90 Pleural effusion, not elsewhere classified; I50.33 Acute on chronic diastolic (congestive) heart failure; I27.2 Other secondary pulmonary hypertension; I48.0 Paroxysmal atrial fibrillation; M06.9 Rheumatoid arthritis, unspecified; I25.10 Atherosclerotic heart disease of native coronary artery without angina pectoris; I08.3 Combined rheumatic disorders of mitral, aortic and tricuspid valves; E78.5 Hyperlipidemia, unspecified; F41.9 Anxiety disorder, unspecified; Z90.710 Acquired absence of both cervix and uterus; Z90.49 Acquired absence of other specified parts of digestive tract; Z98.49 Cataract extraction status, unspecified eye; Z88.2 Allergy status to sulfonamides; I73.9 Peripheral vascular disease, unspecified; E11.649 Type 2 diabetes mellitus with hypoglycemia without coma
CPT/HCPCS: 36415; 71010; 80048; 80061; 80076; 82042; 82550; 82553; 82947; 83036; 83615; 83735; 83880; 84157; 84484; 85014; 85018; 85025; 85610; 85730; 87070; 87205; 88108; 88305; 89051; 93005; 94760; 97116; 97162; 97165; 99285; G8978-GP; G8979-GP; G8987-GO; G8988-GO; G8989-GO; J1650; J1815; J1940

== ENCOUNTER → 2017-01-25 | Outpatient (CLI) | payer MEDICARE, BC ==
[~2017-01-25] MED LIST changes: +ALDACTONE PO
--- NOTE | ~2017-01-25 | CR63 ---
[facility] A Service of [facility] & [facility] RADIOLOGY TEXT RESULTS PATIENT: DEMARCO WALKER LOCATION: [facility] : [birth year] UNIT #: [id number] AGE: [address]: Keven Smith MD SEX: F ORDER DR: [id number] [facility] [address] [place], [place] [address] [id number] O MR#: [id number] Acc #: [id number] NAME: DEMARCO WALKER : 1930 SEX: F STUDY DATE/TIME: 01/25/2017 14:12 UNIT: [facility] ROOM: STUDY DESCRIPTION: CR Chest 2 View Attending Physician: Keven Smith M.D. Referring Physician: Keven Smith M.D. Ordering Physician: Keven Smith M.D. Primary Care Physician: Keven Smith M.D. MEDICAL IMAGING REPORT This report is preliminary unless electronic signature is present EXAM Chest 01/25/2017. HISTORY 86-year-old female followup recurrent pleural effusion. Thoracentesis last week. Patient continues to complain of right lung pain/back pain. Pain in ribs. Rib tenderness, hurts to cough. Posterior thoracic pain. COMPARISON Chest 01/17/2017 post thoracentesis chest 01/18/2017. FINDINGS PA and lateral chest views demonstrate cardiomegaly. Moderate right pleural effusion remains with a trace effusion again suggested on the left. No visualized pneumothorax. No or displaced rib fracture visible. Mild atelectasis in the area of the right middle lobe. IMPRESSION Continued small right pleural effusion, much improved from 01/17/2017. Trace left pleural effusion slightly improved. Cardiomegaly somewhat improved. No visible pneumothorax and no identified rib fracture. I see no thoracic spine fracture. Dictated by... John Adan M.D. THIS IS AN ELECTRONICALLY VERIFIED REPORT John Adan M.D. at 01/25/2017 3:55 PM YOHAN/damian TD: 01/25/2017 15:47 JOB #: [id number] [facility] A Service of [facility] & [facility] RADIOLOGY TEXT RESULTS PATIENT: DEMARCO WALKER LOCATION: [facility] #: [id number] : [birth year] UNIT #: [id number] AGE: [address]: Keven Smith MD SEX: F ORDER DR: MEDICAL IMAGING REPORT Page 1 of 1 COPY
== END | disposition home or self-care (01) ==
LOC: CRAD 13:57
DX: J90 Pleural effusion, not elsewhere classified (principal); M54.6 Pain in thoracic spine
CPT/HCPCS: 71020